=== PATIENT | female | born 1940 | race Caucasian/White ===

== ENCOUNTER 2018-11-11 15:23 | Inpatient (IN) ==
[2018-11-11] MEDS ORDERED: MethylPREDNISolone Sod Succinate Inj 125 MG/2 ML Vial IV.PUSH ONE (16:11)
[2018-11-11] MEDS ORDERED: Sod Chloride 0.9% Inj 1,000 ML IV.SIG SCH (16:15)
[2018-11-11 16:39] LABS: Baso % (Auto) 0.9 % (0.0-2.0); Eos % (Auto) 0.5 % (0.0-4.0); Hematocrit 44.4 % (35.0-46.0); Hemoglobin 13.9 gm/dL (11.6-15.3); Lymph # (Auto) 2.2 th/mm3 (1.0-4.8); Mean Corpuscular HGB Conc 31.4 % (32.0-36.0); Mean Corpuscular Hemoglobin 27.7 pg (27.0-34.0); Mean Corpuscular Volume 88.2 fL (80.0-100.0); Mean Platelet Volume 8.8 fL (7.0-11.0); Mono # (Auto) 0.6 th/mm3 (0.0-0.9); Neut # (Auto) 2.6 th/mm3 (1.8-7.7); Neut % (Auto) 47.6 % (16.0-70.0); Platelet Count 207 th/mm3 (150-450); Red Blood Count 5.04 mil/mm3 (4.00-5.30); Red Cell Distribution Width 13.7 % (11.6-17.2); White Blood Count 5.4 th/mm3 (4.0-11.0)
--- NOTE | 2018-11-11 16:39 | ED ---
HPI General Chief complaint: Weakness Stated complaint: Coughing/Weakness/Fever/Congestion Time Seen by Provider: 11/11/18 15:58 Source: family Mode of arrival: ambulatory Limitations: language barrier History of Present Illness HPI Narrative: This is a Grecian who only speaks Kyrgyz who presents with her granddaughter who speaks Eritrean with a chief complaint of progressive weakness over the course of the last 6 days. The granddaughter states that it all started with a cough and fever 6 days ago. Then, approximately 3 days ago, the patient started developing confusion and lethargy. Those symptoms have become progressively worse. The granddaughter reports that she has treated the patient 's cough with some nebulizer treatments. The nebulizer solution was actually prescribed to a family member and not the patient. Nonetheless, the nebs did help the cough and chest congestion. 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 However, she does not need any chronic treatment for respiratory issues. She does not use oxygen at home. She does not normally use nebulizer treatments at home. She also has a history of hypertension, coronary artery disease status post 2 stents and sciatica which limits her ambulation. MD Complaint: Reports generalized weakness Onset (ago): day(s) (6) Duration: constant and progressively worsening Location: Reports generalized Relieving factors: other (nebs improve breathing) Exacerbating factors: none Context: Reports recent illness Associated symptoms: Reports confusion, fever/chills, nausea/vomiting, myalgias and shortness of breath Related Data Home Medications Medication Instructions Recorded Confirmed carvedilol 12.5 mg PO DAILY 11/11/18 11/11/18 furosemide 20 mg PO BID 11/11/18 11/11/18 isosorbide mononitrate 30 mg PO DAILY 11/11/18 11/11/18 lisinopril 20 mg PO DAILY 11/11/18 11/11/18 Allergies Allergy/AdvReac Type Severity Reaction Status Date / Time No Known Allergies Allergy Verified 11/11/18 15:29 Review of Systems ROS: all other systems reviewed are negative [facility] Medical History Medical History Hx of heart valve stenosis (Acute) Hx of hysterectomy (Acute) Hx of lung disease (Acute) Surgical History Surgical History History of surgery on arm (Acute) Social History Social History Substance History: No History of Abuse Second Hand Smoke Exposure: No Smoking Status: Never smoker How Often Do You Have a Drink Containing Alcohol: Never Recent Travel in [place] within the Last 8 Weeks: No Recent Out of Country Travel within the Last 8 Weeks: No Immunization History Tetanus Immunization: Unsure Exam Const General: cooperative, healthy appearing, comfortable, no acute distress and well developed Orientation: alert and awake [facility] Head: normal to inspection, normocephalic and atraumatic Eyes Alignment and Position: alignment normal and position abnormal Conjunctivae: conjunctivae normal Sclera: sclerae normal EOM: EOM intact bilaterally Neck Neck: normal visual inspection and full ROM Chest Chest: normal inspection of the chest Resp Effort & Inspection: normal respiratory effort and other Auscultation: wheezes Cardio Rate: regular rate Rhythm: regular rhythm GI Inspection: normal to inspection Palpation: soft Back/Spine/Pelvis Cervical Spine: cervical ROM normal Thoracic/Lumbar Spine: thoraco-lumbar ROM normal Skin General: no rashes or lesions noted, turgor normal, dry skin and ecchymosis ( Right upper arm) Neuro General: alert, awake, oriented x3, moves all extremities and CN's II-XI intact bilaterally Extrem General: normal to inspection and full ROM Psych Appearance: grossly normal and well kempt Mental Status: mental status grossly normal Course Initial Documented Vital Signs Temperature 98.1 F 11/11/18 15:25 Pulse Rate 69 11/11/18 15:25 Respiratory Rate 18 11/11/18 15:25 Blood Pressure 186/90 H 11/11/18 15:25 Pulse Oximetry 93 L 11/11/18 15:25 Last Documented Vital Signs Temperature 98.1 F 11/11/18 15:25 Pulse Rate 83 11/11/18 18:09 Respiratory Rate 20 11/11/18 18:09 Blood Pressure 141/80 H 11/11/18 17:34 Pulse Oximetry 95 11/11/18 18:24 Medical Decision Making [facility] Narrative Medical decision making narrative: This is a patient with an underlying diagnosis of 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 Under normal circumstances, she does not take any medications for her breathing. On exam, the patient has some wheezing. She sounds very tight. Her sats are 91 % on room air. A septic workup has been initiated. She will be treated with DuoNeb's x3 and Solu-Medrol. 5:15 PM Labs and x-ray do not look bad. She does have a POSSIBLE infiltrate in the left base. I will treat her empirically with IV Rocephin and Zithromax. She has had duo nebs and Solu-Medrol. I will reassess her breathing to determine disposition. 5:25 PM Aeration is improved. However, she still has diffuse expiratory wheezing. I have ordered an additional set of stacked nebs. She is still on oxygen at 2 L and her sats are 95%. 6:15 PM She has now had a second round of stacked DuoNeb's. She is still very "wheezy. " She is still on 2 L of oxygen and her sats are only 93-95% on 2 L. She does not have an oxygen requirement at home. She will need to be admitted to the hospital for aggressive pulmonary treatment. Medical Screen Exam Complete: Yes Emergency Medical Condition: Yes Differential Diagnosis Differential Diagnosis: Differential diagnosis includes but is not limited to viral respiratory illness, bronchitis, pneumonia, allergies, CHF, asthma/COPD. Lab Data Lab results reviewed: Yes I reviewed the patient's lab results. Result diagrams: 11/11/18 16:20 11/11/18 16:20 Lab Results 11/11/18 11/11/18 11/11/18 Range/Units 16:20 16:20 16:20 CBC w Diff Auto diff final WBC 5.4 (4.0-11.0) th/mm3 RBC 5.04 (4.00-5.30) mil/mm3 Hgb 13.9 (11.6-15.3) gm/dL Hct 44.4 (35.0-46.0) % MCV 88.2 (80.0-100.0) fL MCH 27.7 (27.0-34.0) pg MCHC 31.4 L (32.0-36.0) % RDW 13.7 (11.6-17.2) % Plt Count 207 (150-450) th/mm3 MPV 8.8 (7.0-11.0) fL Neut % (Auto) 47.6 (16.0-70.0) % Lymph % (Auto) 40.0 (9.0-44.0) % [place] % (Auto) 11.0 H (0.0-8.0) % Eos % (Auto) 0.5 (0.0-4.0) % Baso % (Auto) 0.9 (0.0-2.0) % Neut # (Auto) 2.6 (1.8-7.7) th/mm3 Lymph # (Auto) 2.2 (1.0-4.8) th/mm3 [place] # (Auto) 0.6 (0.0-0.9) th/mm3 Eos # (Auto) 0.0 (0.0-0.4) th/mm3 Baso # (Auto) 0.0 (0.0-0.2) th/mm3 WBC Differential . Differential Comment . Sodium 142 (136-145) meq/L Potassium 3.5 (3.5-5.1) meq/L Chloride 107 (98-107) meq/L Carbon Dioxide 29.0 (21.0-32.0) meq/L Anion Gap 6 (5-15) meq/L BUN 19 H (7-18) mg/dL Creatinine 0.91 (0.50-1.00) mg/dL Estimated GFR 60 L (>89) mL/min Random Glucose 143 H (74-106) mg/dL Lactic Acid 1.9 (0.4-2.0) mmol/L Calcium 8.2 L (8.5-10.1) mg/dL Magnesium 2.3 (1.5-2.5) mg/dL Total Bilirubin 0.3 (0.2-1.0) mg/dL AST 31 (15-37) U/L ALT 29 (10-53) U/L Alkaline Phosphatase 69 (45-117) U/L Troponin I Less than 0.02 L (0.02-0.05) ng/mL B-Natriuretic Peptide (0-100) pg/mL Total Protein 7.6 (6.4-8.2) g/dL Albumin 3.3 L (3.4-5.0) g/dL 11/11/18 Range/Units 16:20 CBC w Diff WBC (4.0-11.0) th/mm3 RBC (4.00-5.30) mil/mm3 Hgb (11.6-15.3) gm/dL Hct (35.0-46.0) % MCV (80.0-100.0) fL MCH (27.0-34.0) pg MCHC (32.0-36.0) % RDW (11.6-17.2) % Plt Count (150-450) th/mm3 MPV (7.0-11.0) fL Neut % (Auto) (16.0-70.0) % Lymph % (Auto) (9.0-44.0) % [place] % (Auto) (0.0-8.0) % Eos % (Auto) (0.0-4.0) % Baso % (Auto) (0.0-2.0) % Neut # (Auto) (1.8-7.7) th/mm3 Lymph # (Auto) (1.0-4.8) th/mm3 [place] # (Auto) (0.0-0.9) th/mm3 Eos # (Auto) (0.0-0.4) th/mm3 Baso # (Auto) (0.0-0.2) th/mm3 WBC Differential Differential Comment Sodium (136-145) meq/L Potassium (3.5-5.1) meq/L Chloride (98-107) meq/L Carbon Dioxide (21.0-32.0) meq/L Anion Gap (5-15) meq/L BUN (7-18) mg/dL Creatinine (0.50-1.00) mg/dL Estimated GFR (>89) mL/min Random Glucose (74-106) mg/dL Lactic Acid (0.4-2.0) mmol/L Calcium (8.5-10.1) mg/dL Magnesium (1.5-2.5) mg/dL Total Bilirubin (0.2-1.0) mg/dL AST (15-37) U/L ALT (10-53) U/L Alkaline Phosphatase (45-117) U/L Troponin I (0.02-0.05) ng/mL B-Natriuretic Peptide 293 H (0-100) pg/mL Total Protein (6.4-8.2) g/dL Albumin (3.4-5.0) g/dL Imaging Data Attestation: I personally reviewed and interpreted this imaging study as follows : My impression: Possible left lower lobe infiltrate Radiologist's impression: Chest X-Ray 11/11/18 16:11 CONCLUSION: Suspected mild atelectasis or consolidation at the lateral left base. ECG Data EKG Prior to Arrival: No Attestation: I personally reviewed and interpreted this ECG as follows: (EKG shows a normal sinus rhythm with a rate of 71. No STT wave changes.) Discharge Plan Discharge Disposition Patient Disposition: ED Admit(ED Internal Use Only) Discharge Order Discharge Orders: ED Use Only Admit Order (Routine); Ordered 11/11/18 Ordered By: Sanjana Gil Discharge Details Diagnosis: Acute respiratory distress, Acute bronchospasm, Pneumonia Physicians Team ED Provider: Sanjana Gil Primary Care Provider: Daniel Ashby Rxs /Orders / Referrals /Forms Prescriptions: No Action carvedilol 12.5 mg PO DAILY RF: 0 furosemide 20 mg PO BID RF: 0 isosorbide mononitrate 30 mg PO DAILY RF: 0 lisinopril 20 mg PO DAILY RF: 0 Status ED Status: With Doctor
--- NOTE | 2018-11-11 16:43 | XR ---
EXAM DATE: 11/11/2018 4:37 PM EST AGE/SEX: 77 years / Female INDICATIONS: Cough. CLINICAL DATA: This is the patient's initial encounter. Patient reports that signs and symptoms have been present for 1 day and indicates a pain score of Nonresponsive. MEDICAL/SURGICAL HISTORY: Non-responsive. Non-responsive. COMPARISON: No prior exams available for comparison. FINDINGS: The heart size is within normal limits. There appear to be calcifications or stent seen over the LAD region. There are some mild linear density seen at the lateral left base. The lungs are otherwise mily ssly clear. No effusion is seen. CONCLUSION: Suspected mild atelectasis or consolidation at the lateral left base. Electronically signed by: Jeremiah Romero MD Board Certified Radiologist 11/11/2018 4:42 PM EST
[2018-11-11 16:44] LABS: Chloride 107 meq/L (98-107); Potassium 3.5 meq/L (3.5-5.1); Sodium 142 meq/L (136-145)
[2018-11-11 16:49] LABS: Albumin 3.3 g/dL (3.4-5.0); Anion Gap 6 meq/L (5-15); Calcium 8.2 mg/dL (8.5-10.1); Glucose,Random 143 mg/dL (74-106); Magnesium 2.3 mg/dL (1.5-2.5)
[2018-11-11 16:50] LABS: Blood Urea Nitrogen 19 mg/dL (7-18)
[2018-11-11 16:52] LABS: Alanine Aminotransferase 29 U/L (10-53); Aspartate Aminotransferase 31 U/L (15-37)
[2018-11-11 16:53] LABS: Glomerular Filtration Rate 60 mL/min (>89)
[2018-11-11 16:54] LABS: Total Protein 7.6 g/dL (6.4-8.2)
[2018-11-11 16:55] LABS: Alkaline Phosphatase 69 U/L (45-117)
[2018-11-11] MEDS ORDERED: Azithromycin Inj 500 MG in Sodium Chlor 0.9% Inj 250 ML IV.SIG ONE (17:15)
[2018-11-11] MEDS ORDERED: Bisacodyl 10 MG Supp RECTAL PRN (18:35)
[2018-11-11] MEDS: MethylPREDNISolone Sod Succinate Inj 40 MG/ML Vial IV.PUSH SCH (19:11)
[2018-11-11] MEDS: guaiFENesin 600 MG ER Tablet PO SCH (22:27)
[2018-11-12] MEDS: MethylPREDNISolone Sod Succinate Inj 40 MG/ML Vial IV.PUSH SCH ×4 (00:30→18:03)
[2018-11-12 06:44] LABS: Baso % (Auto) 0.2 % (0.0-2.0); Eos % (Auto) 0.1 % (0.0-4.0); Hematocrit 41.4 % (35.0-46.0); Hemoglobin 13.8 gm/dL (11.6-15.3); Lymph % (Auto) 11.8 % (9.0-44.0); Mean Corpuscular HGB Conc 33.3 % (32.0-36.0); Mean Corpuscular Hemoglobin 28.9 pg (27.0-34.0); Mean Corpuscular Volume 86.7 fL (80.0-100.0); Mean Platelet Volume 8.4 fL (7.0-11.0); Mono # (Auto) 0.2 th/mm3 (0.0-0.9); Mono % (Auto) 2.3 % (0.0-8.0); Neut # (Auto) 7.2 th/mm3 (1.8-7.7); Neut % (Auto) 85.6 % (16.0-70.0); Platelet Count 193 th/mm3 (150-450); Red Blood Count 4.77 mil/mm3 (4.00-5.30); Red Cell Distribution Width 13.5 % (11.6-17.2); White Blood Count 8.4 th/mm3 (4.0-11.0)
[2018-11-12 07:03] LABS: Potassium 3.6 meq/L (3.5-5.1)
[2018-11-12 07:08] LABS: Calcium 8.5 mg/dL (8.5-10.1)
--- NOTE | 2018-11-12 08:31 | ECG ---
Date Performed: 11/11/2018 Time Performed: 16:24:19 PTAGE: 77 years EKG: Sinus rhythm NORMAL ECG NO PREVIOUS TRACING DOCTOR: Bree Hsu Interpretating Date/Time 11/12/2018 08:26:53
[2018-11-12] MEDS: Isosorbide Mononitrate 30 MG ER 24HR Tablet (Imdur) PO SCH (09:33)
[2018-11-12] MEDS: guaiFENesin 600 MG ER Tablet PO SCH ×2 (09:33→21:22)
[2018-11-12] MEDS: Carvedilol 6.25 MG Tablet PO SCH (09:33)
[2018-11-12] MEDS: Lisinopril 20 MG Tablet PO SCH (09:33)
--- NOTE | 2018-11-12 10:14 | P.HPIM ---
History of Present Illness Primary Care Physician: Daniel Ashby DO Chief Complaint: weakness, cough and fever History of Present Illness: 77-year-old female with past medical history of lung disease 2/2 dry cleaning chemicals, hypertension, coronary artery disease status post 2 stents and sciatica which limits her ambulation who presented to the ER with complaint of progressive weakness over the course of the last 6 days. The granddaughter states that it all started with a cough and fever 6 days ago. Then, approximately 3 days ago, the patient started developing confusion and lethargy. Those symptoms have become progressively worse. The granddaughter reports that she has treated the patient's cough with some nebulizer treatments. The nebulizer solution was actually prescribed to a family member and not the patient. Nonetheless, the nebs did help the cough and chest congestion. 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 However, she does not need any chronic treatment for respiratory issues. She does not use oxygen at home. She does not normally use nebulizer treatments at home. She also has a history of hypertension, coronary artery disease status post 2 stents and sciatica which limits her ambulation. Review of Systems Review of Systems: all other systems reviewed are negative [facility] Medical History Medical History Hx of heart valve stenosis (Acute) Hx of lung disease (Acute) Surgical History Surgical History H/O: hysterectomy (Acute) History of surgery on arm (Acute) Hx of hysterectomy (Resolved) Social History Social History Substance History: No History of Abuse Second Hand Smoke Exposure: No Smoking Status: Never smoker How Often Do You Have a Drink Containing Alcohol: Never Recent Travel in [place] within the Last 8 Weeks: No Recent Out of Country Travel within the Last 8 Weeks: No Immunization History Tetanus Immunization: Unsure Medications and Allergies Allergies Allergy/AdvReac Type Severity Reaction Status Date / Time No Known Allergies Allergy Verified 11/11/18 15:29 Home Medications Medication Instructions Recorded Confirmed Type carvedilol 12.5 mg PO DAILY 11/11/18 11/11/18 History furosemide 20 mg PO BID 11/11/18 11/11/18 History isosorbide mononitrate 30 mg PO DAILY 11/11/18 11/11/18 History lisinopril 20 mg PO DAILY 11/11/18 11/11/18 History aspirin 325 mg PO DAILY 11/12/18 11/12/18 History atorvastatin 20 mg PO DAILY 11/12/18 11/12/18 History nitroglycerin 0.4 mg SUBLINGUAL Q5-15M PRN 11/12/18 11/12/18 History omega [id number] oil [Fish Oil] 1 cap PO DAILY 11/12/18 11/12/18 History potassium chloride 10 meq PO DAILY 11/12/18 11/12/18 History Active Medications: Active Medications Acetaminophen (Tylenol) 650 mg PO Q4H PRN PRN Reason: Temp > 100.4 Al Hydroxide/Mg Hydroxide (Milk Of Magnesia Liq) 30 ml PO Q12H PRN PRN Reason: Mild Constipation Albuterol (Duoneb Neb ([facility])) 1 ampul NEB Q6HR WHILE AWAKE NEB [facility] Last Admin: 11/12/18 07:48 Dose: 1 ampul Albuterol (Duoneb Neb (Prn)) 1 ampul NEB Q2HR NEB PRN PRN Reason: SHORTNESS OF BREATH/WHEEZING Bisacodyl (Dulcolax Supp) 10 mg RECTAL DAILY PRN PRN Reason: SEVERE CONSITIPATION Carvedilol (Coreg) 12.5 mg PO DAILY [facility] Last Admin: 11/12/18 09:33 Dose: 12.5 mg Guaifenesin (Mucinex Er) 600 mg PO BID [facility] Last Admin: 11/12/18 09:33 Dose: 600 mg Isosorbide Mononitrate (Imdur) 30 mg PO DAILY [facility] Last Admin: 11/12/18 09:33 Dose: 30 mg Lactulose (Lactulose Liq) 30 ml PO DAILY PRN PRN Reason: SEVERE CONSITIPATION Lisinopril (Prinivil) 20 mg PO DAILY [facility] Last Admin: 11/12/18 09:33 Dose: 20 mg Methylprednisolone Sodium Succinate (Solumedrol Inj) 40 mg IV.PUSH Q6H [facility] Last Admin: 11/12/18 06:51 Dose: 40 mg Ondansetron HCl (Zofran Inj) 4 mg IV.PUSH Q6H PRN PRN Reason: NAUSEA OR VOMITING Sennosides (Senokot) 17.2 mg PO Q12H PRN PRN Reason: Moderate Constipation Sodium Chloride (Ns Flush) 2 ml IV.FLUSH PRN PRN PRN Reason: FLUSH AFTER USING IV ACCESS Sodium Chloride (Ns Flush) 2 ml IV.FLUSH BID [facility] Last Admin: 11/12/18 09:34 Dose: 2 ml Physical Exam Vital signs: Last Vital Signs Temp 97.7 F 11/12/18 08:00 Pulse 83 11/12/18 08:00 Resp 20 11/12/18 08:00 BP 163/75 H 11/12/18 00:00 Pulse Ox 93 L 11/12/18 08:00 Intake & Output 11/10/18 11/11/18 11/12/18 11/13/18 06:59 06:59 06:59 06:59 Intake Total 1440 / 1440 Output Total 700 / 700 Balance 740 / 740 Weight 86.6 kg Narrative: GENERAL: Pleasant 77 yo female, well nourished, well developed, appears in nad. SKIN: Warm and dry. HEAD: Atraumatic. Normocephalic. EYES: Pupils equal and round. No scleral icterus. No injection or drainage. ENT: No nasal bleeding or discharge. Mucous membranes pink and moist. NECK: Trachea midline. No JVD. CARDIOVASCULAR: Regular rate and rhythm. RESPIRATORY: No accessory muscle use. Decreased breath sounds. Scattered wheezing. GASTROINTESTINAL: Abdomen soft, non-tender, nondistended. Hepatic and splenic margins not palpable. MUSCULOSKELETAL: Extremities without clubbing, cyanosis, or edema. No obvious deformities. NEUROLOGICAL: Awake and alert. No obvious cranial nerve deficits. Motor grossly within normal limits. Five out of 5 muscle strength in the arms and legs. Normal speech. PSYCHIATRIC: Appropriate mood and affect; insight and judgment normal. Results Labs CBC & Chem 7: 11/12/18 06:10 11/12/18 06:10 Imaging Impressions Chest X-Ray 11/11/18 16:11 CONCLUSION: Suspected mild atelectasis or consolidation at the lateral left base. Caprini VTE Risk Assessment Caprini VTE Risk Assessment: Moderate/High Risk (score >= 2) Caprini Risk Assessment Model: Point Value = 1 Point Value = 2 Point Value = 3 Point Value = 5 Age 41-60 Minor surgery BMI > 25 kg/m2 Swollen legs Varicose veins or History of unexplained or recurrent spontaneous Oral contraceptives or hormone replacement Sepsis (< 1 month) Serious lung disease, including pneumonia (< 1 month) Abnormal pulmonary function Acute myocardial infarction Congestive heart failure (< 1 month) History of inflammatory bowel disease Medical patient at bed rest Age 61-74 Arthroscopic surgery Major open surgery (> 45 min) Laparoscopic surgery (> 45 min) Malignancy Confined to bed (> 72 hours) Immobilizing plaster cast Central venous access Age >= 75 History of VTE Family history of VTE Factor V Leiden Prothrombin [id number] Lupus anticoagulant Anticardiolipin antibodies Elevated serum homocysteine Heparin-induced thrombocytopenia Other congenital or acquired thrombophilia Stroke (< 1 month) Elective arthroplasty Hip, pelvis, or leg fracture Acute spinal cord injury (< 1 month) Prophylaxis Regimen: Total Risk Factor Score Risk Level Prophylaxis Regimen 0-1 Low Early ambulation 2 Moderate Order ONE of the following: *Sequential Compression Device (SCD) *Heparin 5000 units SQ BID 3-4 Higher Order ONE of the following medications: *Heparin 5000 units SQ TID *Enoxaparin/Lovenox 40 mg SQ daily (WT < 150 kg, CrCl > 30 mL/min) *Enoxaparin/Lovenox 30 mg SQ daily (WT < 150 kg, CrCl > 10-29 mL/min) *Enoxaparin/Lovenox 30 mg SQ BID (WT < 150 kg, CrCl > 30 mL/min) AND/OR *Sequential Compression Device (SCD) 5 or more Highest Order ONE of the following medications: *Heparin 5000 units SQ TID (Preferred with Epidurals) *Enoxaparin/Lovenox 40 mg SQ daily (WT < 150 kg, CrCl > 30 mL/min) *Enoxaparin/Lovenox 30 mg SQ daily (WT < 150 kg, CrCl > 10-29 mL/min) *Enoxaparin/Lovenox 30 mg SQ BID (WT < 150 kg, CrCl > 30 mL/min) AND *Sequential Compression Device (SCD) Assessment and Plan Plan Possible left lower lobe lung infiltrate/bronchitis COPD with exacerbation Acute respiratory failure requiring 2 L by nasal cannula. Patient is not on home oxygen at home. Coronary artery disease with stent placed in the past. Hypertension. Restart home medications. Monitor blood pressure and adjust medications as needed. Blood cultures Duo nebs, Solu-Medrol IV, taper as tolerated Continue IV antibiotics Sumycin and ceftriaxone Oxygen supplement, keep oxygen saturation more than 92% DVT prophylaxis with heparin Discussed Condition With: Patient, nurse H&P: Quality VTE Deep Vein Thrombosis/Pulmonary Embolism Present on Admission: No
[2018-11-12] MEDS: Acetaminophen 325 MG Tablet PO PRN (23:07)
[2018-11-13] MEDS: MethylPREDNISolone Sod Succinate Inj 40 MG/ML Vial IV.PUSH SCH ×4 (01:13→21:47)
[2018-11-13] MEDS: Carvedilol 6.25 MG Tablet PO SCH (09:36)
[2018-11-13] MEDS: guaiFENesin 600 MG ER Tablet PO SCH ×2 (09:36→21:49)
[2018-11-13] MEDS: Lisinopril 20 MG Tablet PO SCH (09:37)
[2018-11-13] MEDS: Isosorbide Mononitrate 30 MG ER 24HR Tablet (Imdur) PO SCH ×2 (09:43→09:49)
--- NOTE | 2018-11-13 11:46 | P.PNIM ---
Subjective Interval history: In bed, appears in some distress. The patient is with sob and wheezing. With wheezing receiving nebs. No fever or chills. Feels tired. The patient is also anxious says her health is deteriorating and she is not a citizen and doesn't have insurance. Not much cough however feels congested and unable to bring anything up No abd pain or n/v/d/c. Physical Exam Vital signs: Last Vital Signs Temp 98.7 F 11/13/18 08:00 Pulse 81 11/13/18 08:00 Resp 20 11/13/18 08:00 BP 149/69 H 11/13/18 08:00 Pulse Ox 95 11/13/18 08:00 Intake & Output 11/11/18 11/12/18 11/13/18 11/14/18 06:59 06:59 06:59 06:59 Intake Total 1440 / 1440 840 / 840 240 / 240 Output Total 700 / 700 900 / 900 300 / 300 Balance 740 / 740 -60 / -60 -60 / -60 Weight 86.6 kg 88.9 kg Narrative: GENERAL: Pleasant 77 yo female, well nourished, well developed, appears in some distress due to sob. CARDIOVASCULAR: Regular rate and rhythm. RESPIRATORY: No accessory muscle use. Decreased breath sounds. Scattered wheezing. With sob. GASTROINTESTINAL: Abdomen soft, non-tender, nondistended. Hepatic and splenic margins not palpable. MUSCULOSKELETAL: Extremities without clubbing, cyanosis, or edema. No obvious deformities. NEUROLOGICAL: Awake and alert. No obvious cranial nerve deficits. Motor grossly within normal limits. Five out of 5 muscle strength in the arms and legs. Normal speech. PSYCHIATRIC: Appropriate mood and affect; insight and judgment normal. Results Labs CBC & Chem 7: 11/12/18 06:10 11/12/18 06:10 Labs: Microbiology 11/11/18 16:35 Blood - Peripheral Aerobic Blood Culture - Preliminary No growth in 2 days 11/11/18 16:35 Blood - Peripheral Anaerobic Blood Culture - Preliminary No growth in 2 days 11/11/18 16:20 Blood - Peripheral Aerobic Blood Culture - Preliminary No growth in 2 days 11/11/18 16:20 Blood - Peripheral Anaerobic Blood Culture - Preliminary No growth in 2 days Assessment and Plan Plan Possible left lower lobe lung infiltrate/bronchitis COPD with exacerbation Acute respiratory failure requiring 2 L by nasal cannula. Patient is not on home oxygen at home. Coronary artery disease with stent placed in the past. Hypertension. Restart home medications. Monitor blood pressure and adjust medications as needed. Blood cultures NTD Sputum cultures of obtainable Influ a/b is neg Duo nebs, Solu-Medrol IV, taper as tolerated Continue IV antibiotics Azithromycin and ceftriaxone Oxygen supplement, keep oxygen saturation more than 92% DVT prophylaxis with heparin discussed with the patient, family by phone, nurse Will need O2 walk test before discharge. However the patient is not having insurance and will need to stay in house until improves. Progress Note: Quality VTE Deep Vein Thrombosis/Pulmonary Embolism Present on Admission: No
[2018-11-13 19:18] LABS: ABG PCO2 42 mmHg (38-42); ABG PO2 85 mmHg (61-120)
--- NOTE | 2018-11-13 19:36 | XR ---
EXAM DATE: 11/13/2018 7:32 PM EST AGE/SEX: 77 years / Female INDICATIONS: Shortness of breath. CLINICAL DATA: This is the patient's subsequent encounter. Patient reports that signs and symptoms h ave been present for 3 days and indicates a pain score of Nonresponsive. MEDICAL/SURGICAL HISTORY: Non-responsive. Non-responsive. COMPARISON: [facility], CHEST 1V SINGLE AP, 11/11/2018. . FINDINGS: Cardiac silhouette is enlarged with indistinct central pulmonary vascularity. Ill-defined right infer ior perihilar opacity may reflect confluence of vascular shadows. Minimal airspace disease at the lef t lung base. Mild diffuse interstitial prominence. Remainder of the exam is unchanged. CONCLUSION: 1. Cardiomegaly with mild pulmonary vascular congestion. 2. Ill-defined right infrahilar parenchymal opacity may reflect confluence of shadows. However, dunia ot exclude medial right middle lobe airspace disease. 3. Minimal persistent airspace disease at the left lung base, likely atelectasis. Electronically signed by: Kirill García MD Board Certified Radiologist 11/13/2018 7:35 PM T
[2018-11-13] MEDS: Acetaminophen 325 MG Tablet PO PRN (19:54)
[2018-11-13] MEDS ORDERED: Vancomycin Inj 1,250 MG in Sodium Chlor 0.9% Inj 250 ML IV.SIG ONE (20:31)
[2018-11-13] MEDS ORDERED: Vancomycin Consult Pharmacy OTHER PRN (20:33)
--- NOTE | 2018-11-13 21:05 | CT ---
EXAM DATE: 11/13/2018 8:57 PM EST AGE/SEX: 77 years / Female INDICATIONS: Short of breath. General weakness. Cough. CLINICAL DATA: This is the patient's initial encounter. Patient reports that signs and symptoms have been present for 1 week and indicates a pain score of 2/10. MEDICAL/SURGICAL HISTORY: Cardiovascular disease. Hypertension. Chronic obstructive pulmonary dis ease. Hysterectomy. RADIATION DOSE: 21.72 CTDI (mGy) COMPARISON: [facility]PO, CHEST 1V SINGLE AP, 11/13/2018. . TECHNIQUE: Volumetric scanning was performed using a multi-row detector CT scanner during bolus infu delmy of 75 ml Omnipaque 350 (iohexol) nonionic water-soluble contrast as a single exam dose. The estrada a was post processed with a variety of visualization algorithms including full volume maximum intensi ty projection and sliding thin slab reformation. Using automated exposure control and adjustment of the mA and/or kV according to patient size, radiation dose was kept as low as reasonably achievable t o obtain optimal diagnostic quality images. DICOM format image data is available electronically for review and comparison. FINDINGS: Pulmonary Arteries: No filling defects are seen in the pulmonary arteries through the segmental vess els. The main pulmonary artery is normal in diameter. Lung: Mild airspace consolidation at the lung bases bilaterally. This is more prominent in the media l right lung base. There is opacification of subsegmental bronchi at the bases most notably on the le ft. Ill-defined nearly nodularr airspace disease in the superior segment of the right lower lobe mary uring up to 10 mm. Pleura: No effusion, significant pleural thickening or pneumothorax. Mediastinum: Heart is unremarkable without pericardial effusion. Severe coronary artery calcificatio ns. No significant mediastinal adenopathy. Osseous Structures: Advanced degenerative spondylosis of the thoracic spine. Other: Visulaized upper abdomen is unremarkable. CONCLUSION: 1. No CT evidence for pulmonary artery embolism. 2. Airspace consolidation at the lung bases bilaterally, more prominent in the medial right lung bas e. Associated opacification of subsegmental bronchi at the bases, most notably on the left. Overall f indings are most concerning for aspiration. Differential considerations include pneumonia. 3. Ill-defined nearly nodular 10 mm airspace disease in the superior segment of the right lower lobe . Suspect this is infectious/inflammatory in etiology. Recommend follow-up examination in 3-6 months following completion of appropriate course of therapy. 4. Severe coronary artery calcifications. Electronically signed by: Kirill García MD Board Certified Radiologist 11/13/2018 9:03 PM DAVINA Mallory
[2018-11-13] MEDS ORDERED: Vancomycin Inj 2,100 MG in Sodium Chlor 0.9% Inj 500 ML IV.SIG ONE (22:00)
[2018-11-13 22:44] LABS: Bilirubin,Urine Negative (Negative); Clarity,Urine Clear (Clear); Color,Urine Yellow (Yellw/Straw); Glucose,Urine (UA) Negative (Negative); Leukocyte Esterase,Urine Negative (Negative); Nitrite,Urine Negative (Negative); Specific Gravity,Urine 1.015 (1.002-1.035); Urobilinogen,Urine 0.2 mg/dL (Less than 2)
[2018-11-13 22:51] LABS: RBC,Urine 0-3 /hpf (0-3); Squamous Epithelial Cell,Urine 0-5 /hpf (0-5); WBC,Urine 0-5 /hpf (0-5)
[2018-11-14] MEDS: Piperacil/Tazo 4.5 GM Premix 4.5 GM/100 ML BAG IV.SIG SCH ×5 (00:56→21:56)
[2018-11-14] MEDS: MethylPREDNISolone Sod Succinate Inj 40 MG/ML Vial IV.PUSH SCH ×4 (05:28→22:51)
[2018-11-14] MEDS: guaiFENesin 600 MG ER Tablet PO SCH ×2 (10:02→21:45)
[2018-11-14] MEDS: Lisinopril 20 MG Tablet PO SCH (10:02)
[2018-11-14] MEDS: Isosorbide Mononitrate 30 MG ER 24HR Tablet (Imdur) PO SCH (10:02)
[2018-11-14] MEDS: Carvedilol 6.25 MG Tablet PO SCH (10:02)
--- NOTE | 2018-11-14 14:01 | MB ---
cc: Maricruz ePrea MD DATE: 11/14/2018 REASON FOR CONSULTATION: Respiratory distress and pneumonia. HISTORY OF PRESENT ILLNESS: This is a 77-year-old lady who has a history of chronic lung disease, as well as history of hypertension, coronary artery disease, and chronic back pain. She was admitted with progressive weakness, congestion, cough, wheezing and fever. The patient apparently had a respiratory infection, which got worse and she developed chest tightness and subsequently also became confused and lethargic and was brought to the emergency room. Upon admission, the patient had a CAT scan of the chest which showed evidence of bibasilar pulmonary infiltrates consistent with either aspiration pneumonia or atelectasis and also a lung nodule. The patient has had no hemoptysis, brings up very little mucus, running some fevers, and now on IV antibiotic therapy, as well as IV Solu-Medrol, and on oxygen at 2-3 liters. She has no chest pains. Denies nausea, vomiting or aspiration that she can remember. 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 She has also had a history of aortic valve stenosis. PAST SURGICAL HISTORY: Includes hysterectomy. HABITS AND SOCIAL HISTORY: The patient is a nonsmoker. No significant alcohol use. FAMILY HISTORY: Noncontributory. ALLERGIES: NONE LISTED. MEDICATIONS: List included: 1. Coreg 12.5 mg daily. 2. Lasix 20 mg b.i.d. 3. Lisinopril 20 mg a day. 4. Aspirin 1 daily. 5. Atorvastatin 20 mg a day. 6. Potassium 10 mEq daily. 7. Isordil 30 mg a day. REVIEW OF SYSTEMS: The patient is unable to provide many details. She is short of breath. She has wheezing. She has a cough. She has some epigastric distress with reflux, and has had some leg swelling, and also complains of anxiety. PHYSICAL EXAMINATION: GENERAL: This averagely built, elderly, white female is alert, anxious, mildly dyspneic at rest. VITAL SIGNS: Blood pressure 150/70, pulse is 96, respirations 20, temperature 97.5. HEENT: Head is normocephalic. Pupils are reactive. Tongue is moist. Throat is injected. Nasal mucosa edematous. NECK: Supple. No bruits. Mild venous distention. Trachea midline. CHEST: Distant breath sounds with fine crackles at the lung bases, more on the right side. Wheezes were scattered. HEART: Sounds are irregular S1 and S2 with no murmur. ABDOMEN: Soft and protuberant without masses. No organomegaly or tenderness. Bowel sounds active. EXTREMITIES: Minimal edema with diminished peripheral pulses. Reflexes are 1+ with no gross motor deficits. Cranial nerves grossly intact. SKIN: No lesions observed. IMPRESSION: 1. Bibasilar pneumonia with probable aspiration. 2. Chronic bronchitis with reactive airways disease. 3. Acute respiratory failure with hypoxemia. 4. Coronary artery disease. 5. Hypertension. PLAN: The patient will be maintained on IV Zosyn 4.5 grams every 8 hours and Flagyl 500 mg IV every 8 hours, as well as vancomycin 1 g a day. The patient will be sent for a followup chest x-ray. Sputum sent for Gram stain and culture. Bedside pulmonary function study will be done. Also, await urine antigen for pneumococcus and Legionella. The patient will need a followup CT scan for the lung nodule to be done in approximately 4 to 6 months. The patient will be maintained on DuoNeb solution with a nebulizer q.i.d. and Symbicort added, 160/4.5 mcg 2 puffs twice daily. Thank you, Dr. Monet, for this consultation. MD GAMAL Sherman/lida , 01:24 PM , 01:37 PM
--- NOTE | 2018-11-14 14:37 | P.PNIM ---
Subjective Interval history: Patient is seen lying in bed. Offered custom designer, she declined. Indicates that she is still short of breath but not in distress. No chest pain. No nausea vomiting or diarrhea. Physical Exam Vital signs: Last Vital Signs Temp 98.4 F 11/14/18 12:00 Pulse 73 11/14/18 12:00 Resp 17 11/14/18 12:00 BP 100/57 L 11/14/18 12:00 Pulse Ox 95 11/14/18 12:00 Intake & Output 11/12/18 11/13/18 11/14/18 11/15/18 06:59 06:59 06:59 06:59 Intake Total 1440 / 1440 840 / 840 1661 / 1661 200 / 200 Output Total 700 / 700 900 / 900 2049 / 2049 Balance 740 / 740 -60 / -60 -389 / -389 200 / 200 Weight 86.6 kg 88.9 kg 88.7 kg Narrative: GENERAL: Well-nourished, well-developed adult female in no mild distress. SKIN: Warm and dry. HEAD: Atraumatic. Normocephalic. CARDIOVASCULAR: Regular rate and rhythm. RESPIRATORY: No accessory muscle use. Wheeze. Diminished bases. GASTROINTESTINAL: Abdomen soft, non-tender, non-distended. Positive bowel sounds. MUSCULOSKELETAL: Extremities without clubbing, cyanosis, or edema. No obvious deformities. NEUROLOGICAL: Awake and alert. No obvious cranial nerve deficits. Motor grossly within normal limits. Normal speech. PSYCHIATRIC: Appropriate mood and affect; insight and judgment good. Results Labs CBC & Chem 7: 11/12/18 06:10 11/12/18 06:10 Labs: Microbiology 11/12/18 09:30 Sputum - Expectorated Sputum Gram Stain - Final 11/12/18 09:30 Sputum - Expectorated Sputum Sputum Culture - Final Light growth normal respiratory yan 11/13/18 21:15 Blood - Peripheral Aerobic Blood Culture - Preliminary No growth in 1 day 11/13/18 21:15 Blood - Peripheral Anaerobic Blood Culture - Preliminary No growth in 1 day 11/13/18 21:20 Blood - Peripheral Aerobic Blood Culture - Preliminary No growth in 1 day 11/13/18 21:20 Blood - Peripheral Anaerobic Blood Culture - Preliminary No growth in 1 day 11/11/18 16:35 Blood - Peripheral Aerobic Blood Culture - Preliminary No growth in 3 days 11/11/18 16:35 Blood - Peripheral Anaerobic Blood Culture - Preliminary No growth in 3 days 11/11/18 16:20 Blood - Peripheral Aerobic Blood Culture - Preliminary No growth in 3 days 11/11/18 16:20 Blood - Peripheral Anaerobic Blood Culture - Preliminary No growth in 3 days Imaging Imaging: Impressions Chest CTA 11/13/18 00:00 CONCLUSION: 1. No CT evidence for pulmonary artery embolism. 2. Airspace consolidation at the lung bases bilaterally, more prominent in the medial right lung base. Associated opacification of subsegmental bronchi at the bases, most notably on the left. Overall findings are most concerning for aspiration. Differential considerations include pneumonia. 3. Ill-defined nearly nodular 10 mm airspace disease in the superior segment of the right lower lobe. Suspect this is infectious/inflammatory in etiology. Recommend follow-up examination in 3-6 months following completion of appropriate course of therapy. 4. Severe coronary artery calcifications. Chest X-Ray 11/13/18 00:00 CONCLUSION: 1. Cardiomegaly with mild pulmonary vascular congestion. 2. Ill-defined right infrahilar parenchymal opacity may reflect confluence of shadows. However, cannot exclude medial right middle lobe airspace disease. 3. Minimal persistent airspace disease at the left lung base, likely atelectasis. 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 She was admitted from the ED with weakness , cough, congestion and fever. Bibasilar pneumonia with aspiration COPD with exacerbation Acute respiratory failure with hypoxemia -Pulmonology consulted; appreciate assistance -requiring 2 L by nasal cannula. Patient is not on home oxygen at home. -IV antibiotics azithromycin and ceftriaxone initially; change to Flagyl, Vanco and Zosyn by pulmonology -Bedside PFTs ordered -DuoNeb's, Solu-Medrol, IS, Symbicort -Sputum culture ordered; Legionella and pneumococcus pending; flu negative; blood cultures NGTD -Lung nodule found on CTA; pulmonology recommending repeat CT scan in 4-6 months to evaluate Chronic conditions: Coronary artery disease with stent placed in the past. Hypertension. -Restart home medications. DVT prophylaxis with heparin Will need O2 walk test before discharge. Progress Note: Quality VTE Deep Vein Thrombosis/Pulmonary Embolism Present on Admission: No
[2018-11-14] MEDS ORDERED: Digoxin Inj 500 MCG/2 ML Ampul IV.PUSH ONE (18:50)
[2018-11-14] MEDS ORDERED: Metoprolol Inj 5 MG/5 ML Vial IV.PUSH ONE ×2 (19:09→19:34)
[2018-11-14] MEDS ORDERED: Sodium Chlor 0.9% Inj 500 ML IV.SIG SCH (19:32)
[2018-11-14] MEDS: Budesonide-Formoterol 160/4.5 MCG 6 GM Inhaler INH SCH (21:55)
--- NOTE | 2018-11-14 22:04 | ECG ---
Date Performed: 11/14/2018 Time Performed: 18:53:43 PTAGE: 77 years EKG: ATRIAL FLUTTER/TACHYCARDIA WITH RAPID VENTRICULAR RESPONSE LEFT VENTRICULAR HYPERTROPHY AND ST-T CHANGE ABNORMAL ECG PREVIOUS TRACING : 11/11/2018 16.24 Compared to previous tracing, Afib with RVR is new DOCTOR: Chris Holloway Interpretating Date/Time 11/14/2018 22:03:28
[2018-11-14] MEDS: Vancomycin Inj 2,000 MG in Sodium Chlor 0.9% Inj 500 ML IV.SIG SCH (22:51)
[2018-11-14] MEDS ORDERED: dilTIAZem Inj 125 MG in Sodium Chlor 0.9% Inj 100 ML IV.CONT PRN (23:17)
[2018-11-15] MEDS ORDERED: Digoxin Inj 500 MCG/2 ML Ampul IV.PUSH ONE (00:01)
--- NOTE | 2018-11-15 00:53 | XR ---
EXAM DATE: 11/15/2018 12:39 AM EST AGE/SEX: 77 years / Female INDICATIONS: Congestion. CLINICAL DATA: This is the patient's subsequent encounter. Patient reports that signs and symptoms h ave been present for 4 - 6 days and indicates a pain score of Nonresponsive. MEDICAL/SURGICAL HISTORY: Non-responsive. Non-responsive. COMPARISON: [facility]PO, CHEST 1V SINGLE AP, 11/13/2018. . FINDINGS: Left greater than right basilar parenchymal consolidation again noted and both sides are slightly wor se in the interim. There may be a small left pleural effusion. No large pleural effusion demonstrated . No pneumothorax. Heart size stable, within normal limits. Degenerative changes with mild scoliosis again seen of the spine. CONCLUSION: Bibasilar consolidation slightly worse. Electronically signed by: Jeremiah Camejo MD Board Certified Radiologist 11/15/2018 12:51 AM EST
[2018-11-15] MEDS ORDERED: Chlorhexidine Gluconate 2% 1 Pack (2 Cloths) TOPICAL PRN (04:00)
[2018-11-15] MEDS: Chlorhexidine Gluconate 2% 1 Pack (2 Cloths) TOPICAL SCH (04:37)
[2018-11-15] MEDS: Piperacil/Tazo 4.5 GM Premix 4.5 GM/100 ML BAG IV.SIG SCH ×4 (04:37→21:32)
[2018-11-15] MEDS: MethylPREDNISolone Sod Succinate Inj 40 MG/ML Vial IV.PUSH SCH ×3 (05:45→23:37)
[2018-11-15 06:47] LABS: Baso % (Auto) 0.4 % (0.0-2.0); Eos % (Auto) 0.1 % (0.0-4.0); Hematocrit 38.5 % (35.0-46.0); Hemoglobin 12.8 gm/dL (11.6-15.3); Lymph # (Auto) 0.7 th/mm3 (1.0-4.8); Mean Corpuscular HGB Conc 33.2 % (32.0-36.0); Mean Corpuscular Hemoglobin 29.3 pg (27.0-34.0); Mean Corpuscular Volume 88.2 fL (80.0-100.0); Mean Platelet Volume 8.3 fL (7.0-11.0); Mono # (Auto) 0.5 th/mm3 (0.0-0.9); Mono % (Auto) 6.3 % (0.0-8.0); Neut # (Auto) 7.3 th/mm3 (1.8-7.7); Neut % (Auto) 85.2 % (16.0-70.0); Platelet Count 236 th/mm3 (150-450); Red Blood Count 4.36 mil/mm3 (4.00-5.30); Red Cell Distribution Width 13.2 % (11.6-17.2); White Blood Count 8.5 th/mm3 (4.0-11.0)
[2018-11-15 06:55] LABS: Potassium 3.5 meq/L (3.5-5.1)
[2018-11-15 06:58] LABS: Calcium 8.3 mg/dL (8.5-10.1)
[2018-11-15 06:59] LABS: Carbon Dioxide 32.3 meq/L (21.0-32.0)
[2018-11-15] MEDS: guaiFENesin 600 MG ER Tablet PO SCH ×2 (08:07→21:04)
[2018-11-15] MEDS: Carvedilol 6.25 MG Tablet PO SCH (08:07)
[2018-11-15] MEDS: Digoxin 125 MCG Tablet PO SCH (08:08)
[2018-11-15] MEDS: Isosorbide Mononitrate 30 MG ER 24HR Tablet (Imdur) PO SCH (08:08)
[2018-11-15] MEDS: Budesonide-Formoterol 160/4.5 MCG 6 GM Inhaler INH SCH ×2 (08:08→20:55)
[2018-11-15] MEDS: Lisinopril 20 MG Tablet PO SCH (08:08)
--- NOTE | 2018-11-15 13:21 | P.PNIM ---
Subjective Interval history: Follow up PNA. Patient seen and examined, [employer] interpreting service used for translating. Patient still complains of shortness of breath and wheezing. Cough with white phlegm. Supposedly patient went into a fib rvr overnight and was placed on Cardizem gtt and is now off gtt. Currently controlled in NSR. PT continuing to work with patient. Educated on how to use IS and encouraged use. 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 Physical Exam Vital signs: Vital Signs 11/14/18 15:30 11/14/18 16:00 11/14/18 18:45 Temperature 97.6 F Pulse Rate 66 71 128 H Respiratory Rate 24 17 24 Blood Pressure 115/63 Pulse Oximetry 96 11/14/18 20:00 11/14/18 21:00 11/14/18 21:41 Temperature 98.5 F Pulse Rate 144 H 145 H Respiratory Rate 32 H 20 Blood Pressure 122/90 Pulse Oximetry 97 93 L 11/15/18 00:00 11/15/18 01:00 11/15/18 02:00 Temperature 97.5 F L Pulse Rate 144 H 118 H 98 H Respiratory Rate 26 H 22 14 Blood Pressure 100/53 L 93/77 L 107/77 Pulse Oximetry 95 96 11/15/18 03:00 11/15/18 03:08 11/15/18 04:00 Temperature 98.6 F Pulse Rate 104 H 104 H 113 H Respiratory Rate 24 23 20 Blood Pressure 125/70 124/95 H Pulse Oximetry 94 L 97 11/15/18 05:00 11/15/18 06:00 11/15/18 07:00 Temperature Pulse Rate 92 H 96 H 96 H Respiratory Rate 24 22 19 Blood Pressure 115/79 131/76 Pulse Oximetry 96 96 95 11/15/18 07:01 11/15/18 08:00 11/15/18 08:01 Temperature Pulse Rate 100 H 100 H 98 H Respiratory Rate 20 20 23 Blood Pressure 143/89 H 138/68 Pulse Oximetry 95 96 97 11/15/18 09:00 11/15/18 09:01 11/15/18 10:00 Temperature Pulse Rate 100 H 94 H 100 H Respiratory Rate 21 21 22 Blood Pressure 155/91 H Pulse Oximetry 96 96 96 11/15/18 10:01 11/15/18 11:00 11/15/18 11:04 Temperature Pulse Rate 110 H 92 H 96 H Respiratory Rate 18 26 H 28 H Blood Pressure 149/89 H 161/109 H Pulse Oximetry 96 94 L 96 11/15/18 11:08 11/15/18 12:00 11/15/18 12:01 Temperature Pulse Rate 100 H 94 H 88 Respiratory Rate 25 H 22 23 Blood Pressure 175/92 H 120/75 Pulse Oximetry 97 92 L 94 L Intake & Output 11/14/18 11/15/18 11/15/18 18:59 06:59 18:59 Intake Total 1120 / 1120 1380 / 1380 200 / 200 Output Total 1500 / 1500 500 / 500 Balance -380 / -380 880 / 880 200 / 200 Weight 86.5 kg Intake: IV 400 / 400 1320 / 1320 200 / 200 Zosyn 4.5 GM Premix 4.5 gm In 200 / 200 200 / 200 100 / 100 100 ml @ 200 mls/hr IV.SIG Q6H YOLIS Rx#:[id number] NS Inj 500 ML @ 1000 mls/hr IV. 500 / 500 SIG BOLUS YOLIS Rx#:[id number] Vancomycin Inj 2,000 MG In NS 520 / 520 Inj 500 ML @ 250 mls/hr IV.SIG Q24H YOLIS Rx#:[id number] Flagyl 500 MG Inj 100 ML @ 100 200 / 200 100 / 100 100 / 100 mls/hr IV.SIG Q8H YOLIS Rx#: [id number] Oral 720 / 720 60 / 60 Output: Urine 1500 / 1500 500 / 500 Other: # Urine Diapers 2 # Bowel Movements 0 0 Weight On Admission 86.5 kg Narrative: GENERAL: Well-nourished, well-developed adult female in no mild distress. SKIN: Warm and dry. HEAD: Atraumatic. Normocephalic. CARDIOVASCULAR: Regular rate and rhythm. RESPIRATORY: No accessory muscle use. Diffuse wheezing and rhonchi. Diminished bases. GASTROINTESTINAL: Abdomen soft, non-tender, non-distended. Positive bowel sounds. MUSCULOSKELETAL: Extremities without clubbing, cyanosis, or edema. No obvious deformities. NEUROLOGICAL: Awake and alert. No obvious cranial nerve deficits. Motor grossly within normal limits. Normal speech. PSYCHIATRIC: Appropriate mood and affect; insight and judgment good. Results - Labs CBC & Chem 7: 11/15/18 05:45 11/15/18 05:45 Laboratory Results - last 24 hr 11/14/18 11/14/18 11/15/18 18:48 19:52 05:45 CBC w Diff Auto diff final WBC 8.5 RBC 4.36 Hgb 12.8 Hct 38.5 MCV 88.2 MCH 29.3 MCHC 33.2 RDW 13.2 Plt Count 236 MPV 8.3 Neut % (Auto) 85.2 H Lymph % (Auto) 8.0 L [place] % (Auto) 6.3 Eos % (Auto) 0.1 Baso % (Auto) 0.4 Neut # (Auto) 7.3 Lymph # (Auto) 0.7 L [place] # (Auto) 0.5 Eos # (Auto) 0.0 Baso # (Auto) 0.0 WBC Differential . Differential Comment . Sodium Potassium Chloride Carbon Dioxide Anion Gap BUN Creatinine Estimated GFR Random Glucose Calcium Troponin I Less than 0.02 L Nasal Screen MRSA (PCR) Not detected 11/15/18 05:45 CBC w Diff WBC RBC Hgb Hct MCV MCH MCHC RDW Plt Count MPV Neut % (Auto) Lymph % (Auto) [place] % (Auto) Eos % (Auto) Baso % (Auto) Neut # (Auto) Lymph # (Auto) [place] # (Auto) Eos # (Auto) Baso # (Auto) WBC Differential Differential Comment Sodium 141 Potassium 3.5 Chloride 102 Carbon Dioxide 32.3 H Anion Gap 7 BUN 30 H Creatinine 0.86 Estimated GFR 64 L Random Glucose 161 H Calcium 8.3 L Troponin I Nasal Screen MRSA (PCR) Microbiology 11/13/18 21:15 Blood - Peripheral Aerobic Blood Culture - Preliminary No growth in 2 days 11/13/18 21:15 Blood - Peripheral Anaerobic Blood Culture - Preliminary No growth in 2 days 11/13/18 21:20 Blood - Peripheral Aerobic Blood Culture - Preliminary No growth in 2 days 11/13/18 21:20 Blood - Peripheral Anaerobic Blood Culture - Preliminary No growth in 2 days 11/11/18 16:35 Blood - Peripheral Aerobic Blood Culture - Preliminary No growth in 4 days 11/11/18 16:35 Blood - Peripheral Anaerobic Blood Culture - Preliminary No growth in 4 days 11/11/18 16:20 Blood - Peripheral Aerobic Blood Culture - Preliminary No growth in 4 days 11/11/18 16:20 Blood - Peripheral Anaerobic Blood Culture - Preliminary No growth in 4 days 11/12/18 09:30 Sputum - Expectorated Sputum Gram Stain - Final 11/12/18 09:30 Sputum - Expectorated Sputum Sputum Culture - Final Light growth normal respiratory yan - Imaging Impressions Chest X-Ray 11/15/18 00:00 CONCLUSION: Bibasilar consolidation slightly worse. 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 She was admitted from the ED with weakness , cough, congestion and fever. Bibasilar pneumonia with aspiration, worsening today COPD with exacerbation Acute respiratory failure with hypoxemia -Pulmonology consulted; appreciate assistance -requiring 2 L by nasal cannula. Patient is not on home oxygen at home. -IV antibiotics azithromycin and ceftriaxone initially; change to Flagyl, Vanco and Zosyn by pulmonology. -Bedside PFTs ordered -DuoNeb's, Solu-Medrol, IS, Symbicort, continue. -Sputum culture ordered; Legionella and pneumococcus negative; flu negative; blood cultures NGTD -Lung nodule found on CTA; pulmonology recommending repeat CT scan in 4-6 months to evaluate -Worsening CXR This am. Encourage increase in movement and use of IS. CHF, unspecified type, in exacerbation -BNP elevated. Check ECHO. -Limit fluids. Paroxysmal atrial fibrillation, new onset -Patient went into a fib RVR overnight, likely secondary to acute illness. -Was placed on a Cardizem gtt and turned off at midnight. Was given digoxin. -Continue on home medications including Imdur and Coreg. -Patient does not follow with seed corn production manager, last seen a seed corn production manager was in [place] 6 years ago. -Cardiology consulted, input and recommendations pending. -Check mag and phos today. Replace potassium. Follow labs in am. Coronary artery disease with stent placed in the past Hypertension -Restart home medications. -Await cardiology input. DVT prophylaxis with heparin
[2018-11-15 16:23] LABS: Magnesium 2.5 mg/dL (1.5-2.5)
--- NOTE | 2018-11-15 16:43 | MB ---
cc: Liu Bush MD DATE: 11/15/2018 REASON FOR CONSULTATION: Atrial fibrillation. HISTORY OF PRESENT ILLNESS: History is difficult to elicit due to language barrier. 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 Workup has suggested bibasilar pneumonia for which she has been treated. She continues to have mild to moderate dyspnea at rest. She seems to deny chest pain, dizziness, palpitations, pedal edema. PAST MEDICAL HISTORY: 1. Coronary artery disease, apparently status post coronary stenting in the past. 2. Hypertension. 3. Possible pulmonary fibrosis and chronic lung disease. 4. Hyperlipidemia. PAST SURGICAL HISTORY: 1. Arm surgery. 2. Hysterectomy. CARDIAC MEDICATIONS AT HOME: 1. Imdur 30 mg daily. 2. Carvedilol 12.5 mg daily. 3. Lisinopril 20 mg daily. 4. Aspirin 325 mg daily. 5. Furosemide 20 mg b.i.d. 6. Atorvastatin 20 mg daily. ALLERGIES: NO KNOWN DRUG ALLERGIES. FAMILY HISTORY: Noncontributory. SOCIAL HISTORY: The patient denies any history of alcohol or tobacco abuse. REVIEW OF SYSTEMS: As in the history of present illness, otherwise negative or noncontributory, or difficult to elicit. PHYSICAL EXAMINATION: VITAL SIGNS: Her blood pressure is 136/87 with a pulse of 88, respirations 16. GENERAL: She is a well-developed, well-nourished white female in no acute distress. NECK: Jugular venous pressure is normal. Carotid pulses are 2+ bilaterally and without bruits. CHEST: Diffuse scattered wheezes and rhonchi. CARDIAC: She has an irregularly irregular rhythm without S3 or murmur. ABDOMEN: She has a soft, obese, nontender abdomen. Bowel sounds are present. There is no definite hepatosplenomegaly. EXTREMITIES: Reveals no clubbing, cyanosis or edema. LABORATORY DATA: EKG shows atrial fibrillation, nonspecific ST abnormalities. Chest x-ray showed bibasilar consolidation. Normal CBC. Potassium 3.5, BUN 30, creatinine 0.86. Troponin less than 0.02. IMPRESSION: Atrial fibrillation in a 77-year-old white female with a history of coronary artery disease, hypertension, hyperlipidemia, chronic lung disease, and possible pulmonary fibrosis. At this time, she appears to be in atrial fibrillation with controlled heart rates. There is no definite evidence for congestive heart failure or acute coronary syndrome. With respect to her thromboembolic risk, it is moderately elevated with her advanced age and hypertension. RECOMMENDATIONS: 1. Would recommend b.i.d. dosing for her carvedilol. 2. Agree with digoxin. 3. Add oral Cardizem. 4. Overall, I would recommend rate control and anticoagulation therapy. If she has insurance that covers medications, would place her on Eliquis or Xarelto. Otherwise, would recommend warfarin to achieve an INR of 2.0-2.5. 5. Check a 2-D echocardiogram to assess the left ventricular function. 6. Will follow up as needed. MD MAYA Zayas/edwige , 04:19 PM , 04:28 PM PATRICIA
--- NOTE | 2018-11-15 18:06 | P.PN ---
Subjective Interval history: In ICU due to Atr Fib and RVR. Now on cardizem. still on IV solumedrol and IV Zosyn. CXR shows basal infiltrates. Physical Exam Vital signs: Vital Signs 11/14/18 18:45 11/14/18 20:00 11/14/18 21:00 Temperature 98.5 F Pulse Rate 128 H 144 H 145 H Respiratory Rate 24 32 H 20 Blood Pressure 122/90 Pulse Oximetry 97 11/14/18 21:41 11/15/18 00:00 11/15/18 01:00 Temperature 97.5 F L Pulse Rate 144 H 118 H Respiratory Rate 26 H 22 Blood Pressure 100/53 L 93/77 L Pulse Oximetry 93 L 95 96 11/15/18 02:00 11/15/18 03:00 11/15/18 03:08 Temperature Pulse Rate 98 H 104 H 104 H Respiratory Rate 14 24 23 Blood Pressure 107/77 125/70 Pulse Oximetry 94 L 11/15/18 04:00 11/15/18 05:00 11/15/18 06:00 Temperature 98.6 F Pulse Rate 113 H 92 H 96 H Respiratory Rate 20 24 22 Blood Pressure 124/95 H 115/79 131/76 Pulse Oximetry 97 96 96 11/15/18 07:00 11/15/18 07:01 11/15/18 08:00 Temperature Pulse Rate 96 H 100 H 100 H Respiratory Rate 19 20 20 Blood Pressure 143/89 H Pulse Oximetry 95 95 96 11/15/18 08:01 11/15/18 09:00 11/15/18 09:01 Temperature Pulse Rate 98 H 100 H 94 H Respiratory Rate 23 21 21 Blood Pressure 138/68 155/91 H Pulse Oximetry 97 96 96 11/15/18 10:00 11/15/18 10:01 11/15/18 11:00 Temperature Pulse Rate 97 H 110 H 92 H Respiratory Rate 20 18 26 H Blood Pressure 149/89 H Pulse Oximetry 96 96 94 L 11/15/18 11:04 11/15/18 11:08 11/15/18 12:00 Temperature Pulse Rate 96 H 100 H 94 H Respiratory Rate 28 H 25 H 22 Blood Pressure 161/109 H 175/92 H Pulse Oximetry 96 97 92 L 11/15/18 12:01 11/15/18 13:00 11/15/18 13:01 Temperature 98.2 F Pulse Rate 88 90 94 H Respiratory Rate 23 24 20 Blood Pressure 120/75 146/90 H Pulse Oximetry 94 L 95 94 L 11/15/18 13:26 11/15/18 14:00 11/15/18 14:01 Temperature Pulse Rate 89 86 Respiratory Rate 21 15 Blood Pressure 136/78 Pulse Oximetry 95 97 96 11/15/18 15:00 11/15/18 15:01 11/15/18 15:35 Temperature Pulse Rate 80 88 83 Respiratory Rate 25 H 16 26 H Blood Pressure 136/87 Pulse Oximetry 94 L 94 L 11/15/18 16:00 11/15/18 16:01 11/15/18 17:00 Temperature Pulse Rate 82 82 86 Respiratory Rate 22 25 H 22 Blood Pressure 120/79 Pulse Oximetry 94 L 95 95 11/15/18 17:01 Temperature Pulse Rate 84 Respiratory Rate 24 Blood Pressure 130/79 Pulse Oximetry 95 Intake & Output 11/14/18 11/15/18 11/15/18 18:59 06:59 18:59 Intake Total 1120 / 1120 1380 / 1380 200 / 200 Output Total 1500 / 1500 500 / 500 Balance -380 / -380 880 / 880 200 / 200 Weight 86.5 kg Intake: IV 400 / 400 1320 / 1320 200 / 200 Zosyn 4.5 GM Premix 4.5 gm In 200 / 200 200 / 200 100 / 100 100 ml @ 200 mls/hr IV.SIG Q6H YOLIS Rx#:[id number] NS Inj 500 ML @ 1000 mls/hr IV. 500 / 500 SIG BOLUS YOLIS Rx#:[id number] Vancomycin Inj 2,000 MG In NS 520 / 520 Inj 500 ML @ 250 mls/hr IV.SIG Q24H YOLIS Rx#:[id number] Flagyl 500 MG Inj 100 ML @ 100 200 / 200 100 / 100 100 / 100 mls/hr IV.SIG Q8H YOLIS Rx#: [id number] Oral 720 / 720 60 / 60 Output: Urine 1500 / 1500 500 / 500 Other: # Urine Diapers 2 # Bowel Movements 0 0 Weight On Admission 86.5 kg Narrative: GENERAL: Well-nourished, well-developed elderly female in mild distress. SKIN: Warm and dry. HEAD: Atraumatic. Normocephalic. CARDIOVASCULAR: Regular rate and rhythm. RESPIRATORY: Basal crackles and wheeze upper chest. Diminished bases. GASTROINTESTINAL: Abdomen soft, non-tender, non-distended. Positive bowel sounds. MUSCULOSKELETAL: Extremities without clubbing, cyanosis, or edema. No obvious deformities. NEUROLOGICAL: Awake and alert. Motor grossly within normal limits. Normal speech. PSYCHIATRIC: Appropriate mood and affect. Results - Labs CBC & Chem 7: 11/15/18 05:45 11/15/18 05:45 Laboratory Results - last 24 hr 11/14/18 11/14/18 11/15/18 18:48 19:52 05:45 CBC w Diff Auto diff final WBC 8.5 RBC 4.36 Hgb 12.8 Hct 38.5 MCV 88.2 MCH 29.3 MCHC 33.2 RDW 13.2 Plt Count 236 MPV 8.3 Neut % (Auto) 85.2 H Lymph % (Auto) 8.0 L [place] % (Auto) 6.3 Eos % (Auto) 0.1 Baso % (Auto) 0.4 Neut # (Auto) 7.3 Lymph # (Auto) 0.7 L [place] # (Auto) 0.5 Eos # (Auto) 0.0 Baso # (Auto) 0.0 WBC Differential . Differential Comment . Sodium Potassium Chloride Carbon Dioxide Anion Gap BUN Creatinine Estimated GFR Random Glucose Calcium Phosphorus Magnesium Troponin I Less than 0.02 L Nasal Screen MRSA (PCR) Not detected 11/15/18 11/15/18 05:45 05:45 CBC w Diff WBC RBC Hgb Hct MCV MCH MCHC RDW Plt Count MPV Neut % (Auto) Lymph % (Auto) [place] % (Auto) Eos % (Auto) Baso % (Auto) Neut # (Auto) Lymph # (Auto) [place] # (Auto) Eos # (Auto) Baso # (Auto) WBC Differential Differential Comment Sodium 141 Potassium 3.5 Chloride 102 Carbon Dioxide 32.3 H Anion Gap 7 BUN 30 H Creatinine 0.86 Estimated GFR 64 L Random Glucose 161 H Calcium 8.3 L Phosphorus 3.0 Magnesium 2.5 Troponin I Nasal Screen MRSA (PCR) Microbiology 11/13/18 21:15 Blood - Peripheral Aerobic Blood Culture - Preliminary No growth in 2 days 11/13/18 21:15 Blood - Peripheral Anaerobic Blood Culture - Preliminary No growth in 2 days 11/13/18 21:20 Blood - Peripheral Aerobic Blood Culture - Preliminary No growth in 2 days 11/13/18 21:20 Blood - Peripheral Anaerobic Blood Culture - Preliminary No growth in 2 days 11/11/18 16:35 Blood - Peripheral Aerobic Blood Culture - Preliminary No growth in 4 days 11/11/18 16:35 Blood - Peripheral Anaerobic Blood Culture - Preliminary No growth in 4 days 11/11/18 16:20 Blood - Peripheral Aerobic Blood Culture - Preliminary No growth in 4 days 11/11/18 16:20 Blood - Peripheral Anaerobic Blood Culture - Preliminary No growth in 4 days - Imaging Impressions Chest X-Ray 11/15/18 00:00 CONCLUSION: Bibasilar consolidation slightly worse. Assessment and Plan - Assessment (1) Atrial fibrillation Code(s): I48.91 - Unspecified atrial fibrillation Status: Acute (2) CHF (congestive heart failure) Code(s): I50.9 - Heart failure, unspecified Status: Acute (3) Interstitial lung disease Code(s): J84.9 - Interstitial pulmonary disease, unspecified Status: Acute (4) Atelectasis of both lungs Code(s): J98.11 - Atelectasis Status: Acute (5) Acute respiratory distress Code(s): R06.03 - Acute respiratory distress Status: Acute (6) Acute bronchospasm Code(s): J98.01 - Acute bronchospasm Status: Acute (7) Pneumonia Code(s): J18.9 - Pneumonia, unspecified organism Status: Acute - Plan 1. Will continue Antibiotics Zosyn/vanco 2. Cont Duoneb nebs qid. 3. Wean off cardizem 4. O2 3 L. 5. Solumedrol 40 mg IV Q8H 6. CXR ,BMP ,CBC in am (7) Pneumonia Qualifiers: Pneumonia type: due to unspecified organism Laterality: left Lung location: lower lobe of lung Qualified Code(s): J18.1 - Lobar pneumonia, unspecified organism
[2018-11-15] MEDS: Heparin - SQ 10,000 UNITS/ML Vial SQ SCH (20:54)
[2018-11-15] MEDS: Carvedilol 12.5 MG Tablet PO SCH (21:01)
[2018-11-15] MEDS ORDERED: Pharmacy Ordered Lab Info OTHER ONE (21:45)
[2018-11-15] MEDS: Vancomycin Inj 2,000 MG in Sodium Chlor 0.9% Inj 500 ML IV.SIG SCH (22:19)
[2018-11-16] MEDS: Piperacil/Tazo 4.5 GM Premix 4.5 GM/100 ML BAG IV.SIG SCH ×4 (03:25→21:25)
[2018-11-16] MEDS: Chlorhexidine Gluconate 2% 1 Pack (2 Cloths) TOPICAL SCH (03:27)
[2018-11-16 05:16] LABS: Baso % (Auto) 0.2 % (0.0-2.0); Eos % (Auto) 0.2 % (0.0-4.0); Hematocrit 40.7 % (35.0-46.0); Hemoglobin 12.9 gm/dL (11.6-15.3); Lymph # (Auto) 0.6 th/mm3 (1.0-4.8); Lymph % (Auto) 7.3 % (9.0-44.0); Mean Corpuscular HGB Conc 31.7 % (32.0-36.0); Mean Corpuscular Hemoglobin 28.2 pg (27.0-34.0); Mean Corpuscular Volume 88.7 fL (80.0-100.0); Mean Platelet Volume 8.7 fL (7.0-11.0); Mono # (Auto) 0.4 th/mm3 (0.0-0.9); Mono % (Auto) 5.2 % (0.0-8.0); Neut # (Auto) 7.5 th/mm3 (1.8-7.7); Neut % (Auto) 87.1 % (16.0-70.0); Platelet Count 279 th/mm3 (150-450); Red Blood Count 4.58 mil/mm3 (4.00-5.30); Red Cell Distribution Width 13.9 % (11.6-17.2); White Blood Count 8.5 th/mm3 (4.0-11.0)
[2018-11-16 05:27] LABS: Potassium 4.1 meq/L (3.5-5.1)
[2018-11-16 05:30] LABS: Carbon Dioxide 30.3 meq/L (21.0-32.0); Magnesium 2.5 mg/dL (1.5-2.5)
[2018-11-16] MEDS: MethylPREDNISolone Sod Succinate Inj 40 MG/ML Vial IV.PUSH SCH ×2 (06:21→14:47)
[2018-11-16] MEDS: Isosorbide Mononitrate 30 MG ER 24HR Tablet (Imdur) PO SCH (08:58)
[2018-11-16] MEDS: Digoxin 125 MCG Tablet PO SCH (08:58)
[2018-11-16] MEDS: Heparin - SQ 10,000 UNITS/ML Vial SQ SCH (08:59)
[2018-11-16] MEDS: dilTIAZem CD 180 MG Capsule PO SCH (08:59)
[2018-11-16] MEDS: Lisinopril 20 MG Tablet PO SCH (08:59)
[2018-11-16] MEDS: Carvedilol 12.5 MG Tablet PO SCH ×2 (08:59→21:25)
[2018-11-16] MEDS: Budesonide-Formoterol 160/4.5 MCG 6 GM Inhaler INH SCH ×2 (09:00→21:26)
[2018-11-16] MEDS: guaiFENesin 600 MG ER Tablet PO SCH ×2 (12:27→21:24)
--- NOTE | 2018-11-16 12:36 | ECHRPT ---
Indication: Heart Failure CONCLUSIONS Normal left ventricular size. Mild concentric left ventricular hypertrophy. The left ventricular systolic function is normal with an estimated ejection fraction in the range of 55-60%. Mitral annular calcification is present. Aortic valve sclerosis is present. There is trace tricuspid valve regurgitation. The estimated pulmonary arterial pressure is 47 mmHg. Trivial pulmonary valve regurgitation. There is a small pericardial effusion present. BP: 126 / 82 HR: 105 Rhythm: MEASUREMENTS (Male / Female) Normal Values Technical Quality:Fair 2D ECHO LV Diastolic Diameter PLAX 4.2 cm 4.2 - 5.9 / 3.9 - 5.3 cm LV Systolic Diameter PLAX 2.4 cm IVS Diastolic Thickness 1.1 cm 0.6 - 1.0 / 0.6 - 0.9 cm LVPW Diastolic Thickness 1.1 cm 0.6 - 1.0 / 0.6 - 0.9 cm LV Relative Wall Thickness 0.5 RV Internal Dim ED PLAX 2.4 cm LVOT Diameter 2.0 cm Aortic Root Diameter 2.5 cm LA Systolic Diameter LX 3.7 cm 3.0 - 4.0 / 2.7 - 3.8 cm DOPPLER AV Peak Velocity 168.0 cm/s AV Peak Gradient 11.3 mmHg LVOT Peak Velocity 116.0 cm/s LVOT Peak Gradient 5.4 mmHg AV Area Cont Eq pk 2.2 cm Mitral E Point Velocity 124.0 cm/s LV E' Lateral Velocity 9.6 cm/s Mitral E to LV E' Lateral Ratio 13.0 LV E' Septal Velocity 4.6 cm/s Mitral E to LV E' Septal Ratio 27.1 TR Peak Velocity 303.0 cm/s TR Peak Gradient 36.7 mmHg Right Atrial Pressure 10.0 mmHg Pulmonary Artery Systolic Pressu 46.7 mmHg Right Ventricular Systolic Press 46.7 mmHg PV Peak Velocity 114.0 cm/s PV Peak Gradient 5.2 mmHg FINDINGS LEFT VENTRICLE Normal left ventricular size. Mild concentric left ventricular hypertrophy. The left ventricular systolic function is normal with an estimated ejection fraction in the range of 55-60%. RIGHT VENTRICLE Normal right ventricular size and systolic function. LEFT ATRIUM The left atrial size is normal. RIGHT ATRIUM The right atrial size is normal. ATRIAL SEPTUM Normal atrial septal thickness without atrial level shunting by limited color doppler interrogation. AORTA The aortic root and proximal ascending aorta are normal in size on limited imaging. MITRAL VALVE Mitral annular calcification is present. AORTIC VALVE Trileaflet aortic valve. Aortic valve sclerosis is present. TRICUSPID VALVE There is trace tricuspid valve regurgitation. The estimated pulmonary arterial pressure is 47 mmHg. PULMONARY VALVE Trivial pulmonary valve regurgitation. VESSELS The inferior vena cava is normal in size. PERICARDIUM There is a small pericardial effusion present. Singh De La Cruz MD, FACC (Electronically Signed) Final Date:16 November 2018 12:35
[2018-11-16] MEDS ORDERED: Warfarin Consult Pharmacy OTHER PRN (12:50)
--- NOTE | 2018-11-16 12:54 | P.PNIM ---
Subjective Interval history: Follow-up pneumonia, COPD exacerbation paroxysmal A. fib. Patient seen and examined, [employer] interpreting used for communication. Patient states that she feels continued short of breath, is coughing up green phlegm. Eating well without any nausea or vomiting. Denies any chest pain. Cardiology and to see patient. Heart rate is more controlled. Physical Exam Vital signs: Vital Signs 11/15/18 13:00 11/15/18 13:01 11/15/18 13:26 Temperature 98.2 F Pulse Rate 90 94 H Respiratory Rate 24 20 Blood Pressure 146/90 H Pulse Oximetry 95 94 L 95 11/15/18 14:00 11/15/18 14:01 11/15/18 15:00 Temperature Pulse Rate 89 86 80 Respiratory Rate 21 15 25 H Blood Pressure 136/78 Pulse Oximetry 97 96 94 L 11/15/18 15:01 11/15/18 15:35 11/15/18 16:00 Temperature Pulse Rate 88 83 82 Respiratory Rate 16 26 H 22 Blood Pressure 136/87 Pulse Oximetry 94 L 94 L 11/15/18 16:01 11/15/18 17:00 11/15/18 17:01 Temperature Pulse Rate 82 86 84 Respiratory Rate 25 H 22 24 Blood Pressure 120/79 130/79 Pulse Oximetry 95 95 95 11/15/18 18:00 11/15/18 18:01 11/15/18 18:18 Temperature 97.9 F Pulse Rate 88 94 H 102 H Respiratory Rate 24 21 23 Blood Pressure 135/102 H 141/80 H Pulse Oximetry 96 96 96 11/15/18 19:01 11/15/18 20:00 11/15/18 20:01 Temperature 98.5 F Pulse Rate 118 H 107 H 108 H Respiratory Rate 28 H 26 H Blood Pressure 135/77 106/69 Pulse Oximetry 95 93 L 93 L 11/15/18 20:49 11/15/18 21:01 11/15/18 21:57 Temperature Pulse Rate 106 H 100 H 102 H Respiratory Rate 28 H 26 H 22 Blood Pressure 151/76 H 120/86 Pulse Oximetry 94 L 94 L 95 11/15/18 22:00 11/15/18 22:01 11/15/18 23:00 Temperature Pulse Rate 92 H 104 H 100 H Respiratory Rate 25 H 26 H Blood Pressure 147/78 H 122/68 Pulse Oximetry 97 95 11/16/18 00:00 11/16/18 01:00 11/16/18 02:00 Temperature 98.6 F Pulse Rate 96 H 102 H 106 H Respiratory Rate 25 H 23 26 H Blood Pressure 111/72 115/75 145/89 H Pulse Oximetry 95 95 96 11/16/18 03:01 11/16/18 03:36 11/16/18 04:00 Temperature Pulse Rate 100 H 106 H 80 Respiratory Rate 20 22 Blood Pressure 110/75 Pulse Oximetry 96 11/16/18 04:02 11/16/18 05:00 11/16/18 06:00 Temperature 98.6 F Pulse Rate 102 H 90 105 H Respiratory Rate 25 H 21 Blood Pressure 141/82 H 147/86 H Pulse Oximetry 95 94 L 11/16/18 06:02 11/16/18 08:20 11/16/18 10:11 Temperature Pulse Rate 80 108 H Respiratory Rate 21 20 Blood Pressure 140/95 H Pulse Oximetry 95 97 Intake & Output 11/15/18 11/16/18 11/16/18 18:59 06:59 18:59 Intake Total 950 / 950 700 / 700 Output Total 700 / 700 500 / 500 Balance 250 / 250 200 / 200 Weight 88.1 kg Intake: IV 300 / 300 400 / 400 Zosyn 4.5 GM Premix 4.5 gm In 200 / 200 200 / 200 100 ml @ 200 mls/hr IV.SIG Q6H YOLIS Rx#:[id number] Flagyl 500 MG Inj 100 ML @ 100 100 / 100 200 / 200 mls/hr IV.SIG Q8H YOLIS Rx#: [id number] Oral 650 / 650 300 / 300 Output: Urine 700 / 700 500 / 500 Other: # Bowel Movements 0 Narrative: GENERAL: Well-nourished, well-developed elderly female lying in bed comfortably no apparent distress. On supplemental O2. SKIN: Warm and dry. HEAD: Atraumatic. Normocephalic. CARDIOVASCULAR: Regular rate and rhythm. RESPIRATORY: Bilateral posterior lower lobe crackles with diffuse wheezing. GASTROINTESTINAL: Abdomen soft, non-tender, non-distended. Positive bowel sounds. MUSCULOSKELETAL: Extremities without clubbing, cyanosis, or edema. No obvious deformities. NEUROLOGICAL: Awake and alert. Motor grossly within normal limits. Normal speech. PSYCHIATRIC: Appropriate mood and affect. Results - Labs CBC & Chem 7: 11/16/18 04:35 11/16/18 04:35 Laboratory Results - last 24 hr 11/15/18 11/15/18 11/16/18 05:45 22:18 04:35 CBC w Diff Auto diff final WBC 8.5 RBC 4.58 Hgb 12.9 Hct 40.7 MCV 88.7 MCH 28.2 MCHC 31.7 L RDW 13.9 Plt Count 279 MPV 8.7 Neut % (Auto) 87.1 H Lymph % (Auto) 7.3 L [place] % (Auto) 5.2 Eos % (Auto) 0.2 Baso % (Auto) 0.2 Neut # (Auto) 7.5 Lymph # (Auto) 0.6 L [place] # (Auto) 0.4 Eos # (Auto) 0.0 Baso # (Auto) 0.0 WBC Differential . Differential Comment . Sodium Potassium Chloride Carbon Dioxide Anion Gap BUN Creatinine Estimated GFR Random Glucose Calcium Phosphorus 3.0 Magnesium 2.5 Vancomycin Trough 9.2 11/16/18 04:35 CBC w Diff WBC RBC Hgb Hct MCV MCH MCHC RDW Plt Count MPV Neut % (Auto) Lymph % (Auto) [place] % (Auto) Eos % (Auto) Baso % (Auto) Neut # (Auto) Lymph # (Auto) [place] # (Auto) Eos # (Auto) Baso # (Auto) WBC Differential Differential Comment Sodium 139 Potassium 4.1 Chloride 102 Carbon Dioxide 30.3 Anion Gap 7 BUN 31 H Creatinine 0.81 Estimated GFR 68 L Random Glucose 187 H Calcium 8.0 L Phosphorus Magnesium 2.5 Vancomycin Trough Microbiology 11/13/18 21:15 Blood - Peripheral Aerobic Blood Culture - Preliminary No growth in 3 days 11/13/18 21:15 Blood - Peripheral Anaerobic Blood Culture - Preliminary No growth in 3 days 11/13/18 21:20 Blood - Peripheral Aerobic Blood Culture - Preliminary No growth in 3 days 11/13/18 21:20 Blood - Peripheral Anaerobic Blood Culture - Preliminary No growth in 3 days 11/11/18 16:35 Blood - Peripheral Aerobic Blood Culture - Final No growth in 5 days 11/11/18 16:35 Blood - Peripheral Anaerobic Blood Culture - Final No growth in 5 days 11/11/18 16:20 Blood - Peripheral Aerobic Blood Culture - Final No growth in 5 days 11/11/18 16:20 Blood - Peripheral Anaerobic Blood Culture - Final No growth in 5 days Assessment and Plan - Assessment (1) Acute bronchospasm Code(s): J98.01 - Acute bronchospasm Status: Acute (2) Acute respiratory distress Code(s): R06.03 - Acute respiratory distress Status: Acute (3) Atrial fibrillation Code(s): I48.91 - Unspecified atrial fibrillation Status: Acute (4) CHF (congestive heart failure) Code(s): I50.9 - Heart failure, unspecified Status: Acute (5) Interstitial lung disease Code(s): J84.9 - Interstitial pulmonary disease, unspecified Status: Acute (6) Pneumonia Code(s): J18.9 - Pneumonia, unspecified organism Status: Acute - Plan Patient is a 77-year-old female with a past medical history of hypertension, coronary artery disease, chronic pain and 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 She was admitted from the ED with weakness , cough, congestion and fever. Bibasilar pneumonia with aspiration COPD with exacerbation Acute respiratory failure with hypoxemia -Pulmonology consulted; appreciate assistance -Requiring 2 L by nasal cannula. Patient is not on home oxygen at home. -IV antibiotics azithromycin and ceftriaxone initially; changed to Flagyl, Vanco and Zosyn by pulmonology. -Bedside PFTs ordered. -DuoNeb's, Solu-Medrol, IS, Symbicort, continue. -Sputum culture ordered, no growth; Legionella and pneumococcus negative; flu negative; blood cultures NGTD -Lung nodule found on CTA; pulmonology recommending repeat CT scan in 4-6 months to evaluate -Encourage increase in movement and use of IS. -PT evaluation ordered, [facility] recommended when ready for dc. Paroxysmal atrial fibrillation, new onset Elevated BNP on presentation -Patient went into a fib RVR, likely secondary to acute illness. -Was placed on a Cardizem gtt which has presently been turned off. Was started on digoxin. -Continue on home medications including Imdur and Coreg. -Patient does not follow with statistics intern, last seen a statistics intern was in [facility] 6 years ago. -Cardiology consulted, input and recommendations appreciated. Change dose of carvedilol to twice daily. Continue digoxin. Added oral Cardizem. -Anticoagulation recommendations for Coumadin, patient does not have insurance. INR goal 2-2.5. Pharmacy consulted to assist with dosing. Started on Lovenox bridge. -Echocardiogram done showing EF of 55-60%. Normal left ventricular size. Mild left ventricular hypertrophy. Aortic valve sclerosis. Trace tricuspid valve regurgitation, trivial pulmonary valve regurgitation. Pulmonary artery pressure 47. Coronary artery disease with cardiac stent Hypertension -Restart home medications. DVT prophylaxis: Coumadin. Discharge Planning: Awaiting clinical improvement. (6) Pneumonia Qualifiers: Pneumonia type: due to unspecified organism Laterality: left Lung location: lower lobe of lung Qualified Code(s): J18.1 - Lobar pneumonia, unspecified organism
[2018-11-16 15:47] LABS: Prothrombin Time 10.6 sec (9.8-11.6)
[2018-11-16] MEDS ORDERED: COUMA PO SCH (16:00)
--- NOTE | 2018-11-16 17:51 | P.PN ---
Subjective Interval history: feels better. On O2 2 L. No chest pains and HR better. Physical Exam Vital signs: Vital Signs 11/15/18 18:00 11/15/18 18:01 11/15/18 18:18 Temperature 97.9 F Pulse Rate 88 94 H 102 H Respiratory Rate 24 21 23 Blood Pressure 135/102 H 141/80 H Pulse Oximetry 96 96 96 11/15/18 19:01 11/15/18 20:00 11/15/18 20:01 Temperature 98.5 F Pulse Rate 118 H 107 H 108 H Respiratory Rate 28 H 26 H Blood Pressure 135/77 106/69 Pulse Oximetry 95 93 L 93 L 11/15/18 20:49 11/15/18 21:01 11/15/18 21:57 Temperature Pulse Rate 106 H 100 H 102 H Respiratory Rate 28 H 26 H 22 Blood Pressure 151/76 H 120/86 Pulse Oximetry 94 L 94 L 95 11/15/18 22:00 11/15/18 22:01 11/15/18 23:00 Temperature Pulse Rate 92 H 104 H 100 H Respiratory Rate 25 H 26 H Blood Pressure 147/78 H 122/68 Pulse Oximetry 97 95 11/16/18 00:00 11/16/18 01:00 11/16/18 02:00 Temperature 98.6 F Pulse Rate 96 H 102 H 106 H Respiratory Rate 25 H 23 26 H Blood Pressure 111/72 115/75 145/89 H Pulse Oximetry 95 95 96 11/16/18 03:01 11/16/18 03:36 11/16/18 04:00 Temperature Pulse Rate 100 H 106 H 80 Respiratory Rate 20 22 Blood Pressure 110/75 Pulse Oximetry 96 11/16/18 04:02 11/16/18 05:00 11/16/18 06:00 Temperature 98.6 F Pulse Rate 102 H 90 105 H Respiratory Rate 25 H 21 Blood Pressure 141/82 H 147/86 H Pulse Oximetry 95 94 L 11/16/18 06:02 11/16/18 08:20 11/16/18 10:11 Temperature Pulse Rate 80 108 H Respiratory Rate 21 20 Blood Pressure 140/95 H Pulse Oximetry 95 97 11/16/18 15:18 Temperature Pulse Rate 76 Respiratory Rate 22 Blood Pressure Pulse Oximetry Intake & Output 12/30/18 12/31/18 12/31/18 18:59 06:59 18:59 Intake Total 950 / 950 700 / 700 200 / 200 Output Total 700 / 700 500 / 500 Balance 250 / 250 200 / 200 200 / 200 Weight 88.1 kg Intake: IV 300 / 300 400 / 400 200 / 200 Zosyn 4.5 GM Premix 4.5 gm In 200 / 200 200 / 200 100 / 100 100 ml @ 200 mls/hr IV.SIG Q6H YOLIS Rx#:[id number] Flagyl 500 MG Inj 100 ML @ 100 100 / 100 200 / 200 100 / 100 mls/hr IV.SIG Q8H YOLIS Rx#: [id number] Oral 650 / 650 300 / 300 Output: Urine 700 / 700 500 / 500 Other: # Bowel Movements 0 Narrative: GENERAL: Well-nourished, well-developed elderly female in no apparent distress. On supplemental O2. SKIN: Warm and dry. HEAD: Atraumatic. Normocephalic. CARDIOVASCULAR:Irregular rate and rhythm. RESPIRATORY: Bilateral posterior lower lobe crackles with diffuse wheezing. GASTROINTESTINAL: Abdomen soft, non-tender, non-distended. Positive bowel sounds. MUSCULOSKELETAL: Extremities without clubbing, cyanosis, or edema. No obvious deformities. NEUROLOGICAL: Awake and alert. Motor grossly within normal limits. Normal speech. PSYCHIATRIC: Appropriate mood and affect. Results - Labs CBC & Chem 7: 11/16/18 04:35 11/16/18 04:35 Laboratory Results - last 24 hr 11/15/18 11/16/18 11/16/18 22:18 04:35 04:35 CBC w Diff Auto diff final WBC 8.5 RBC 4.58 Hgb 12.9 Hct 40.7 MCV 88.7 MCH 28.2 MCHC 31.7 L RDW 13.9 Plt Count 279 MPV 8.7 Neut % (Auto) 87.1 H Lymph % (Auto) 7.3 L [place] % (Auto) 5.2 Eos % (Auto) 0.2 Baso % (Auto) 0.2 Neut # (Auto) 7.5 Lymph # (Auto) 0.6 L [place] # (Auto) 0.4 Eos # (Auto) 0.0 Baso # (Auto) 0.0 WBC Differential . Differential Comment . PT INR Sodium 139 Potassium 4.1 Chloride 102 Carbon Dioxide 30.3 Anion Gap 7 BUN 31 H Creatinine 0.81 Estimated GFR 68 L Random Glucose 187 H Calcium 8.0 L Magnesium 2.5 Vancomycin Trough 9.2 11/16/18 15:25 CBC w Diff WBC RBC Hgb Hct MCV MCH MCHC RDW Plt Count MPV Neut % (Auto) Lymph % (Auto) [place] % (Auto) Eos % (Auto) Baso % (Auto) Neut # (Auto) Lymph # (Auto) [place] # (Auto) Eos # (Auto) Baso # (Auto) WBC Differential Differential Comment PT 10.6 INR 1.0 Sodium Potassium Chloride Carbon Dioxide Anion Gap BUN Creatinine Estimated GFR Random Glucose Calcium Magnesium Vancomycin Trough Microbiology 11/13/18 21:15 Blood - Peripheral Aerobic Blood Culture - Preliminary No growth in 3 days 11/13/18 21:15 Blood - Peripheral Anaerobic Blood Culture - Preliminary No growth in 3 days 11/13/18 21:20 Blood - Peripheral Aerobic Blood Culture - Preliminary No growth in 3 days 11/13/18 21:20 Blood - Peripheral Anaerobic Blood Culture - Preliminary No growth in 3 days 11/11/18 16:35 Blood - Peripheral Aerobic Blood Culture - Final No growth in 5 days 11/11/18 16:35 Blood - Peripheral Anaerobic Blood Culture - Final No growth in 5 days 11/11/18 16:20 Blood - Peripheral Aerobic Blood Culture - Final No growth in 5 days 11/11/18 16:20 Blood - Peripheral Anaerobic Blood Culture - Final No growth in 5 days Assessment and Plan - Assessment (1) Atrial fibrillation Code(s): I48.91 - Unspecified atrial fibrillation Status: Acute (2) CHF (congestive heart failure) Code(s): I50.9 - Heart failure, unspecified Status: Acute (3) Interstitial lung disease Code(s): J84.9 - Interstitial pulmonary disease, unspecified Status: Acute (4) Atelectasis of both lungs Code(s): J98.11 - Atelectasis Status: Acute (5) Acute respiratory distress Code(s): R06.03 - Acute respiratory distress Status: Acute (6) Acute bronchospasm Code(s): J98.01 - Acute bronchospasm Status: Acute (7) Pneumonia Code(s): J18.9 - Pneumonia, unspecified organism Status: Acute - Plan 1. Will continue Antibiotics Zosyn/vanco/ Flagyl 2. Cont Duoneb nebs TID 3. O2 2 L N/C 4. Arrange home O2 if sats <88 5. Taper Solumedrol 40 mg IV BID 6. BMP ,CBC in am 7. Cardiology evaluation. 8. Cont lasix 20 mg BID (7) Pneumonia Qualifiers: Pneumonia type: due to unspecified organism Laterality: left Lung location: lower lobe of lung Qualified Code(s): J18.1 - Lobar pneumonia, unspecified organism
[2018-11-16] MEDS: Furosemide 20 MG Tablet PO SCH (21:25)
[2018-11-16] MEDS: Enoxaparin Inj 100 MG/ML Syringe SQ SCH (21:25)
[2018-11-16] MEDS: Vancomycin Inj 2,000 MG in Sodium Chlor 0.9% Inj 500 ML IV.SIG SCH (23:17)
[2018-11-17] MEDS: MethylPREDNISolone Sod Succinate Inj 40 MG/ML Vial IV.PUSH SCH ×2 (02:14→13:23)
[2018-11-17] MEDS: Piperacil/Tazo 4.5 GM Premix 4.5 GM/100 ML BAG IV.SIG SCH ×4 (04:00→23:24)
[2018-11-17] MEDS: Chlorhexidine Gluconate 2% 1 Pack (2 Cloths) TOPICAL SCH (04:22)
[2018-11-17 06:17] LABS: INR 1.1 Ratio; Prothrombin Time 10.8 sec (9.8-11.6)
[2018-11-17] MEDS: Lisinopril 20 MG Tablet PO SCH (08:40)
[2018-11-17] MEDS: Digoxin 125 MCG Tablet PO SCH (08:40)
[2018-11-17] MEDS: dilTIAZem CD 180 MG Capsule PO SCH (08:41)
[2018-11-17] MEDS: Carvedilol 12.5 MG Tablet PO SCH ×2 (08:41→21:02)
[2018-11-17] MEDS: Furosemide 20 MG Tablet PO SCH ×2 (08:41→21:02)
[2018-11-17] MEDS: guaiFENesin 600 MG ER Tablet PO SCH ×2 (08:41→21:02)
[2018-11-17] MEDS: Isosorbide Mononitrate 30 MG ER 24HR Tablet (Imdur) PO SCH (08:41)
[2018-11-17] MEDS: Enoxaparin Inj 100 MG/ML Syringe SQ SCH ×2 (08:41→21:03)
[2018-11-17] MEDS: Budesonide-Formoterol 160/4.5 MCG 6 GM Inhaler INH SCH ×2 (08:41→21:06)
[2018-11-17] MEDS ORDERED: Dextrose 50% in Water 50 ML Vial IV.PUSH PRN (09:04)
--- NOTE | 2018-11-17 11:02 | P.PNIM ---
Subjective Interval history: 77-year-old female who is seen for strict pulmonary disease exacerbation, paroxysmal atrial fibrillation. Medical records were reviewed. No acute events overnight. Patient heart rate controlled at this time. Vital signs are stable. Patient remains afebrile. Discussed with daughter at bedside. Is concerned about the patient's respiratory status. She is happy that she is improving. States that she will be available for any translation if needed. Answered all of her questions to her satisfaction. Physical Exam Vital signs: Last Vital Signs Temp 97.7 F 11/17/18 08:00 Pulse 101 H 11/17/18 08:00 Resp 18 11/17/18 08:00 BP 141/84 H 11/17/18 08:00 Pulse Ox 98 11/17/18 08:00 Intake & Output 11/15/18 11/16/18 11/17/18 11/18/18 06:59 06:59 06:59 06:59 Intake Total 2500 / 2500 1650 / 1650 2580 / 2580 Output Total 2000 / 2000 1200 / 1200 1450 / 1450 Balance 500 / 500 450 / 450 1130 / 1130 Weight 86.5 kg 88.1 kg 90.7 kg Narrative: GENERAL: Well-developed, well-nourished, in no acute distress. alert HEENT: Head is normocephalic without any lesions or masses noted. Facial features are symmetric. Eyes: Extraocular muscles are intact. Conjunctivae were clear. NECK: Supple without any masses. Trachea midline no deviation. No JVD, CARDIAC: Regular rhythm, regular rate. S1/S2 are heard. No murmurs gallops or rubs. LUNGS: Clear to auscultation bilaterally. No wheeze, rhonchi or rales. No use of accessory muscles on inspiration or expiration. ABDOMEN: Soft, nontender. Nondistended. Bowel sounds heard in all 4 quadrants. No organomegaly or masses. Negative rebound, negative guarding EXTREMITIES: No edema, pulses are equal bilaterally. No cyanosis or clubbing NEUROLOGY: Mood and affect appear appropriate. Cranial nerves II through XII grossly intact. Moving all extremities, Results Labs CBC & Chem 7: 11/18/18 05:30 11/18/18 05:30 Labs: Microbiology 11/13/18 21:15 Blood - Peripheral Aerobic Blood Culture - Preliminary No growth in 3 days 11/13/18 21:15 Blood - Peripheral Anaerobic Blood Culture - Preliminary No growth in 3 days 11/13/18 21:20 Blood - Peripheral Aerobic Blood Culture - Preliminary No growth in 3 days 11/13/18 21:20 Blood - Peripheral Anaerobic Blood Culture - Preliminary No growth in 3 days 11/11/18 16:35 Blood - Peripheral Aerobic Blood Culture - Final No growth in 5 days 11/11/18 16:35 Blood - Peripheral Anaerobic Blood Culture - Final No growth in 5 days 11/11/18 16:20 Blood - Peripheral Aerobic Blood Culture - Final No growth in 5 days 11/11/18 16:20 Blood - Peripheral Anaerobic Blood Culture - Final No growth in 5 days Procedures Procedures: ECHOCARDIOGRAM CONCLUSIONS Normal left ventricular size Mild concentric left ventricular hypertrophy Left ventricular systolic function is normal with an estimated ejection fraction in the range of 55-60% Mild annular calcification is present Aortic valve sclerosis is present There is trace tricuspid valve regurgitation The estimated pulmonary arterial pressure is 47 mmhg Trivial pulmonary valve regurgitation There is a small pericardial effusion present Assessment and Plan (1) Atrial fibrillation: Code(s): I48.91 - Unspecified atrial fibrillation Status: Acute (2) CHF (congestive heart failure): Code(s): I50.9 - Heart failure, unspecified Status: Acute (3) Interstitial lung disease: Code(s): J84.9 - Interstitial pulmonary disease, unspecified Status: Acute (4) Atelectasis of both lungs: Code(s): J98.11 - Atelectasis Status: Acute (5) Acute respiratory distress: Code(s): R06.03 - Acute respiratory distress Status: Acute (6) Acute bronchospasm: Code(s): J98.01 - Acute bronchospasm Status: Acute (7) Pneumonia: Code(s): J18.9 - Pneumonia, unspecified organism Status: Acute Plan Acute hypoxic respiratory failure Likely secondary to chronic objective pulmonary disease exacerbation, bibasilar pneumonia CTA of the chest and indicated airspace consolidation in left lung bases associated with opacification of segmental bronchi at the bases. Findings concerning for aspiration. Ill-defined nodular airspace disease in the right lower lobe suspected infectious/inflammatory etiology. Recommending follow-up examination in 3-6 months. Severe coronary artery calcifications Continue O2 supplementation to maintain O2 sat greater than 92% Continue antibiotics include vancomycin, Zosyn, Flagyl Continue Solu-Medrol 40 mg IV every 12 hours Continue Symbicort inhaler twice daily Continue guaifenesin Sputum culture shows light growth of normal respiratory yan Influenza testing was negative May need home oxygen if unable to wean off prior to discharge Paroxysmal atrial fibrillation, new onset Patient was initially started on Cardizem IV changed to digoxin p.o. Blacksmith Assistant were consulted who recommended continuation of digoxin and full anticoagulation Patient has been started on therapeutic Lovenox with Coumadin for anticoagulation Pharmacy consulted for Coumadin management to maintain INR 2.0-3.0 Echocardiogram: Please see results above Hyperglycemia Check hemoglobin A1c Start Accu-Cheks with sliding scale insulin Hypertension, coronary artery disease with cardiac stenting Home medications were continued to include aspirin, Lipitor, Coreg, Imdur, lisinopril DVT prevention Patient is on Lovenox and Coumadin Discharge Planning: Case management consulted. Anticipate discharge when INR 2.0-3.0. Physical therapy recommending home with home health care PT and wheeled walker Progress Note: Quality VTE Deep Vein Thrombosis/Pulmonary Embolism Present on Admission: No _ (1) CHF (congestive heart failure) Qualifiers: Heart failure chronicity: Heart failure type: (2) Atrial fibrillation Qualifiers: Atrial fibrillation type: (3) Pneumonia Qualifiers: Aspiration pneumonia type: Laterality: left Lung location: lower lobe of lung Pneumonia type: due to unspecified organism Qualified Code(s): J18.1 - Lobar pneumonia, unspecified organism
--- NOTE | 2018-11-17 11:14 | P.DCO ---
Diagnosis (1) Atrial fibrillation: Status: Acute (2) CHF (congestive heart failure): Status: Acute (3) Acute respiratory distress: Status: Acute (4) Pneumonia: Status: Acute Physical Therapy Order: Evaluate and treat, Improve ambulation and Strength and gait training Home Health Nursing Order: Medical education, Signs/symptoms of disease process, CHF education and Nursing assessment with vital signs Case Management Consult Case Management Consult-Home Health: Yes I have seen patient Harriet Connolly on 11/17/18. My clinical findings support the need for the requested home health care services because: Limited mobility due to disease progression, Patient has SOB and Limited ability to care for self I certify that my clinical findings support that this patient is homebound because: Hx COPD - exertion dyspnea/weakness and Unsteady gait/balance _ (1) Atrial fibrillation Qualifiers: Atrial fibrillation type: (2) CHF (congestive heart failure) Qualifiers: Heart failure type: Heart failure chronicity: (3) Pneumonia Qualifiers: Aspiration pneumonia type: Laterality: left Lung location: lower lobe of lung Pneumonia type: due to unspecified organism Qualified Code(s): J18.1 - Lobar pneumonia, unspecified organism
[2018-11-17] MEDS: Insulin NovoLOG Aspart Correctional Sugar Inj SQ SCH ×3 (12:54→21:04)
[2018-11-17 13:41] LABS: Hemoglobin A1c 6.4 % (4.3-6.0)
--- NOTE | 2018-11-17 16:00 | P.PN ---
Subjective Interval history: No chest pains.Breathing better.Still some wheezing and cough. On O2 2 L. Physical Exam Vital signs: Vital Signs 11/16/18 16:00 11/16/18 17:00 11/16/18 18:00 Temperature 98.6 F Pulse Rate 78 84 92 H Respiratory Rate 24 26 H 27 H Blood Pressure 103/77 133/67 120/64 Pulse Oximetry 92 L 93 L 93 L 11/16/18 19:00 11/16/18 19:30 11/16/18 20:00 Temperature 98.9 F 98.9 F Pulse Rate 100 H 100 H Respiratory Rate 29 H 25 H Blood Pressure 115/75 115/75 Pulse Oximetry 100 94 L 94 L 11/16/18 21:00 11/16/18 21:10 11/16/18 22:00 Temperature Pulse Rate 110 H 93 H 99 H Respiratory Rate 20 22 20 Blood Pressure Pulse Oximetry 94 L 94 L 11/16/18 22:05 11/17/18 00:00 11/17/18 02:00 Temperature Pulse Rate 55 L 86 62 Respiratory Rate 20 Blood Pressure 115/75 Pulse Oximetry 96 11/17/18 02:05 11/17/18 03:20 11/17/18 04:00 Temperature Pulse Rate 61 71 77 Respiratory Rate 15 24 Blood Pressure Pulse Oximetry 94 L 11/17/18 05:55 11/17/18 07:00 11/17/18 08:00 Temperature 97.7 F Pulse Rate 96 H 101 H Respiratory Rate 15 30 H Blood Pressure 135/85 Pulse Oximetry 94 L 98 98 11/17/18 09:00 11/17/18 10:00 11/17/18 11:00 Temperature Pulse Rate 110 H 98 H Respiratory Rate 37 H 24 Blood Pressure 122/85 140/72 110/63 Pulse Oximetry 93 L 94 L 91 L 11/17/18 12:00 11/17/18 13:45 Temperature Pulse Rate 76 66 Respiratory Rate 28 H Blood Pressure Pulse Oximetry Intake & Output 11/16/18 11/17/18 11/17/18 18:59 06:59 18:59 Intake Total 1120 / 1120 1460 / 1460 440 / 440 Output Total 900 / 900 550 / 550 400 / 400 Balance 220 / 220 910 / 910 40 / 40 Weight 90.7 kg Intake: IV 400 / 400 1340 / 1340 200 / 200 Zosyn 4.5 GM Premix 4.5 gm In 200 / 200 200 / 200 100 / 100 100 ml @ 200 mls/hr IV.SIG Q6H [facility] Rx#:[id number] Vancomycin Inj 2,000 MG In NS 1040 / 1040 Inj 500 ML @ 250 mls/hr IV.SIG Q24H [facility] Rx#:[id number] Flagyl 500 MG Inj 100 ML @ 100 200 / 200 100 / 100 100 / 100 mls/hr IV.SIG Q8H [facility] Rx#: [id number] Oral 720 / 720 120 / 120 240 / 240 Output: Urine 900 / 900 550 / 550 400 / 400 Other: Date of Last Bowel Movement 11/17/18 # Bowel Movements 0 2 Narrative: GENERAL: Well-developed, elderly W/F , in no acute distress. alert HEENT: Head is normocephalic without any lesions or masses noted. Facial features are symmetric. Eyes: Extraocular muscles are intact. Conjunctivae were clear. NECK: Supple without any masses. Trachea midline no deviation. No JVD, CARDIAC: Regular rhythm, regular rate. S1/S2 are heard. No murmurs gallops or rubs. LUNGS: Basal crackles. No use of accessory muscles . ABDOMEN: Soft, nontender. Nondistended. Bowel sounds heard in all 4 quadrants. No organomegaly or masses. Negative rebound, negative guarding EXTREMITIES: No edema, pulses are equal bilaterally. No cyanosis or clubbing NEUROLOGY: Mood and affect appear appropriate. Moving all extremities, Results - Labs CBC & Chem 7: 11/16/18 04:35 11/16/18 04:35 Laboratory Results - last 24 hr 11/17/18 11/17/18 11/17/18 05:37 10:09 12:53 PT 10.8 INR 1.1 POC Glucose 237 H Hemoglobin A1c 6.4 H Microbiology 11/13/18 21:15 Blood - Peripheral Aerobic Blood Culture - Preliminary No growth in 4 days 11/13/18 21:15 Blood - Peripheral Anaerobic Blood Culture - Preliminary No growth in 4 days 11/13/18 21:20 Blood - Peripheral Aerobic Blood Culture - Preliminary No growth in 4 days 11/13/18 21:20 Blood - Peripheral Anaerobic Blood Culture - Preliminary No growth in 4 days 11/11/18 16:35 Blood - Peripheral Aerobic Blood Culture - Final No growth in 5 days 11/11/18 16:35 Blood - Peripheral Anaerobic Blood Culture - Final No growth in 5 days 11/11/18 16:20 Blood - Peripheral Aerobic Blood Culture - Final No growth in 5 days 11/11/18 16:20 Blood - Peripheral Anaerobic Blood Culture - Final No growth in 5 days - Procedures ECHOCARDIOGRAM CONCLUSIONS Normal left ventricular size Mild concentric left ventricular hypertrophy Left ventricular systolic function is normal with an estimated ejection fraction in the range of 55-60% Mild annular calcification is present Aortic valve sclerosis is present There is trace tricuspid valve regurgitation The estimated pulmonary arterial pressure is 47 mmhg Trivial pulmonary valve regurgitation There is a small pericardial effusion present Assessment and Plan - Assessment (1) Atrial fibrillation Code(s): I48.91 - Unspecified atrial fibrillation Status: Acute (2) CHF (congestive heart failure) Code(s): I50.9 - Heart failure, unspecified Status: Acute (3) Interstitial lung disease Code(s): J84.9 - Interstitial pulmonary disease, unspecified Status: Acute (4) Atelectasis of both lungs Code(s): J98.11 - Atelectasis Status: Acute (5) Acute respiratory distress Code(s): R06.03 - Acute respiratory distress Status: Acute (6) Acute bronchospasm Code(s): J98.01 - Acute bronchospasm Status: Acute (7) Pneumonia Code(s): J18.9 - Pneumonia, unspecified organism Status: Acute - Plan 1. Will continue Antibiotics Zosyn/vanco/ Flagyl 2. Cont Duoneb nebs TID 3. O2 2 L N/C 4. Arrange home O2 if sats <88 5. Solumedrol 40 mg IV BID 6. CXR in am 7. PFT at bedside 8. Cont lasix 20 mg BID (7) Pneumonia Qualifiers: Pneumonia type: due to unspecified organism Laterality: left Lung location: lower lobe of lung Qualified Code(s): J18.1 - Lobar pneumonia, unspecified organism
[2018-11-17] MEDS: Vancomycin Inj 2,000 MG in Sodium Chlor 0.9% Inj 500 ML IV.SIG SCH (21:02)
[2018-11-18] MEDS: MethylPREDNISolone Sod Succinate Inj 40 MG/ML Vial IV.PUSH SCH (02:20)
[2018-11-18] MEDS: Chlorhexidine Gluconate 2% 1 Pack (2 Cloths) TOPICAL SCH (04:06)
[2018-11-18] MEDS: Piperacil/Tazo 4.5 GM Premix 4.5 GM/100 ML BAG IV.SIG SCH ×4 (04:06→22:57)
[2018-11-18 06:23] LABS: Baso % (Auto) 0.2 % (0.0-2.0); Eos % (Auto) 0.1 % (0.0-4.0); Hematocrit 41.2 % (35.0-46.0); Hemoglobin 13.7 gm/dL (11.6-15.3); Lymph # (Auto) 1.4 th/mm3 (1.0-4.8); Lymph % (Auto) 14.2 % (9.0-44.0); Mean Corpuscular HGB Conc 33.3 % (32.0-36.0); Mean Corpuscular Volume 87.3 fL (80.0-100.0); Mean Platelet Volume 8.2 fL (7.0-11.0); Mono # (Auto) 0.6 th/mm3 (0.0-0.9); Mono % (Auto) 6.4 % (0.0-8.0); Neut # (Auto) 8.1 th/mm3 (1.8-7.7); Neut % (Auto) 79.1 % (16.0-70.0); Platelet Count 327 th/mm3 (150-450); Red Blood Count 4.72 mil/mm3 (4.00-5.30); Red Cell Distribution Width 13.8 % (11.6-17.2); White Blood Count 10.1 th/mm3 (4.0-11.0)
[2018-11-18 06:33] LABS: Potassium 3.9 meq/L (3.5-5.1)
[2018-11-18 06:38] LABS: Carbon Dioxide 28.8 meq/L (21.0-32.0)
[2018-11-18] MEDS: Digoxin 125 MCG Tablet PO SCH (10:12)
[2018-11-18] MEDS: Insulin NovoLOG Aspart Correctional Sugar Inj SQ SCH ×4 (10:12→22:42)
[2018-11-18] MEDS: dilTIAZem CD 180 MG Capsule PO SCH (10:12)
[2018-11-18] MEDS: Isosorbide Mononitrate 30 MG ER 24HR Tablet (Imdur) PO SCH (10:13)
[2018-11-18] MEDS: Furosemide 20 MG Tablet PO SCH ×2 (10:13→22:53)
[2018-11-18] MEDS: Carvedilol 12.5 MG Tablet PO SCH ×2 (10:13→22:53)
[2018-11-18] MEDS: Enoxaparin Inj 100 MG/ML Syringe SQ SCH ×2 (10:16→22:52)
[2018-11-18] MEDS: guaiFENesin 600 MG ER Tablet PO SCH ×2 (10:20→22:53)
[2018-11-18] MEDS: Lisinopril 20 MG Tablet PO SCH (10:21)
[2018-11-18] MEDS: Budesonide-Formoterol 160/4.5 MCG 6 GM Inhaler INH SCH ×2 (10:28→22:52)
--- NOTE | 2018-11-18 10:46 | P.PNIM ---
Subjective Interval history: 69-year-old female who is seen examined today for follow-up on chronic effect bone disease exacerbation, H fibrillation. Patient appears to be resting comfortably. Patient indicating that her respiratory status about the same as it was yesterday. Patient indicated that she did not sleep well last night. Vital signs are stable. Patient remains afebrile. Physical Exam Vital signs: Last Vital Signs Temp 96.3 F L 11/18/18 08:00 Pulse 72 11/18/18 08:00 Resp 18 11/18/18 08:00 BP 138/71 11/18/18 08:00 Pulse Ox 94 L 11/18/18 08:00 Intake & Output 11/16/18 11/17/18 11/18/18 11/19/18 06:59 06:59 06:59 06:59 Intake Total 1650 / 1650 2580 / 2580 1900 / 1900 100 / 100 Output Total 1200 / 1200 1450 / 1450 1600 / 1600 Balance 450 / 450 1130 / 1130 300 / 300 100 / 100 Weight 88.1 kg 90.7 kg 91.7 kg Narrative: GENERAL: Well-developed, well-nourished, in no acute distress. alert HEENT: Head is normocephalic without any lesions or masses noted. Facial features are symmetric. Eyes: Extraocular muscles are intact. Conjunctivae were clear. NECK: Supple without any masses. Trachea midline no deviation. No JVD, CARDIAC: Regular rhythm, regular rate. S1/S2 are heard. No murmurs gallops or rubs. LUNGS: Clear to auscultation bilaterally. No wheeze, rhonchi or rales. No use of accessory muscles on inspiration or expiration. ABDOMEN: Soft, nontender. Nondistended. Bowel sounds heard in all 4 quadrants. No organomegaly or masses. Negative rebound, negative guarding EXTREMITIES: No edema, pulses are equal bilaterally. No cyanosis or clubbing NEUROLOGY: Mood and affect appear appropriate. Cranial nerves II through XII grossly intact. Moving all extremities, Results Labs CBC & Chem 7: 11/18/18 05:30 11/18/18 05:30 Labs: Microbiology 11/13/18 21:15 Blood - Peripheral Aerobic Blood Culture - Preliminary No growth in 4 days 11/13/18 21:15 Blood - Peripheral Anaerobic Blood Culture - Preliminary No growth in 4 days 11/13/18 21:20 Blood - Peripheral Aerobic Blood Culture - Preliminary No growth in 4 days 11/13/18 21:20 Blood - Peripheral Anaerobic Blood Culture - Preliminary No growth in 4 days Procedures Procedures: ECHOCARDIOGRAM CONCLUSIONS Normal left ventricular size Mild concentric left ventricular hypertrophy Left ventricular systolic function is normal with an estimated ejection fraction in the range of 55-60% Mild annular calcification is present Aortic valve sclerosis is present There is trace tricuspid valve regurgitation The estimated pulmonary arterial pressure is 47 mmhg Trivial pulmonary valve regurgitation There is a small pericardial effusion present Assessment and Plan (1) Atrial fibrillation: Code(s): I48.91 - Unspecified atrial fibrillation Status: Acute (2) CHF (congestive heart failure): Code(s): I50.9 - Heart failure, unspecified Status: Acute (3) Interstitial lung disease: Code(s): J84.9 - Interstitial pulmonary disease, unspecified Status: Acute (4) Atelectasis of both lungs: Code(s): J98.11 - Atelectasis Status: Acute (5) Acute respiratory distress: Code(s): R06.03 - Acute respiratory distress Status: Acute (6) Acute bronchospasm: Code(s): J98.01 - Acute bronchospasm Status: Acute (7) Pneumonia: Code(s): J18.9 - Pneumonia, unspecified organism Status: Acute Plan Acute hypoxic respiratory failure Likely secondary to chronic objective pulmonary disease exacerbation, bibasilar pneumonia CTA of the chest and indicated airspace consolidation in left lung bases associated with opacification of segmental bronchi at the bases. Findings concerning for aspiration. Ill-defined nodular airspace disease in the right lower lobe suspected infectious/inflammatory etiology. Recommending follow-up examination in 3-6 months. Severe coronary artery calcifications Continue O2 supplementation to maintain O2 sat greater than 92% Continue antibiotics include vancomycin, Zosyn, Flagyl Continue Solu-Medrol 40 mg IV every 12 hours, changed to prednisone 20 mg twice daily Continue Symbicort inhaler twice daily Continue guaifenesin Sputum culture shows light growth of normal respiratory yan Influenza testing was negative May need home oxygen if unable to wean off prior to discharge Paroxysmal atrial fibrillation, new onset initially started on Cardizem IV which was discontinued Patient started on digoxin with rate control. Telephone Coin Box Collector were consulted who recommended continuation of digoxin and full anticoagulation Continue Lovenox with Coumadin for anticoagulation Pharmacy consulted for Coumadin management to maintain INR 2.0-3.0 Echocardiogram: Please see results above Hyperglycemia Could be secondary to steroid use Hemoglobin A1c 6.4 Continue Accu-Cheks with sliding scale insulin Continue monitor to see if glucose improves after changing to p.o. prednisone Hypertension, coronary artery disease with cardiac stenting Home medications were continued to include aspirin, Lipitor, Coreg, Imdur, lisinopril DVT prevention Patient is on Lovenox and Coumadin Discharge Planning: Case management consulted. Anticipate discharge when INR 2.0-3.0. Physical therapy recommending home with home health care PT and wheeled walker Progress Note: Quality VTE Deep Vein Thrombosis/Pulmonary Embolism Present on Admission: No _ (1) CHF (congestive heart failure) Qualifiers: Heart failure chronicity: Heart failure type: (2) Atrial fibrillation Qualifiers: Atrial fibrillation type: (3) Pneumonia Qualifiers: Aspiration pneumonia type: Laterality: left Lung location: lower lobe of lung Pneumonia type: due to unspecified organism Qualified Code(s): J18.1 - Lobar pneumonia, unspecified organism
[2018-11-18 17:01] LABS: INR 1.3 Ratio; Prothrombin Time 13.5 sec (9.8-11.6)
--- NOTE | 2018-11-18 19:04 | P.PN ---
Subjective Interval history: Doing better. On O2 3 L. She has mild pulmonary HTN. Poss from pulm Fibrosis. Coughs up very little . Unable to do PFT due to language barrier. Physical Exam Vital signs: Vital Signs 11/17/18 19:15 11/17/18 19:19 11/17/18 20:00 Temperature 97.7 F Pulse Rate 76 66 Respiratory Rate 18 18 Blood Pressure 124/74 Pulse Oximetry 96 96 91 L 11/17/18 20:09 11/18/18 00:00 11/18/18 02:35 Temperature 97.0 F L Pulse Rate 97 H 88 56 L Respiratory Rate 18 25 H Blood Pressure 124/71 Pulse Oximetry 96 11/18/18 04:00 11/18/18 04:05 11/18/18 07:30 Temperature 97.2 F L Pulse Rate 83 73 78 Respiratory Rate 18 20 Blood Pressure 131/76 Pulse Oximetry 93 L 96 11/18/18 08:00 11/18/18 11:45 11/18/18 12:00 Temperature 96.3 F L 96.1 F L Pulse Rate 79 87 87 Respiratory Rate 18 18 Blood Pressure 138/71 127/77 Pulse Oximetry 94 L 94 L 11/18/18 14:01 11/18/18 14:04 11/18/18 16:00 Temperature 96.4 F L Pulse Rate 69 84 Respiratory Rate 18 18 Blood Pressure 104/63 Pulse Oximetry 95 94 L Intake & Output 11/18/18 11/18/18 11/19/18 06:59 18:59 06:59 Intake Total 1020 / 1020 400 / 400 Output Total 800 / 800 800 / 800 Balance 220 / 220 -400 / -400 Weight 91.7 kg Intake: IV 820 / 820 400 / 400 Zosyn 4.5 GM Premix 4.5 gm In 200 / 200 200 / 200 100 ml @ 200 mls/hr IV.SIG Q6H [facility] Rx#:[id number] Vancomycin Inj 2,000 MG In NS 520 / 520 Inj 500 ML @ 250 mls/hr IV.SIG Q24H [facility] Rx#:[id number] Flagyl 500 MG Inj 100 ML @ 100 100 / 100 200 / 200 mls/hr IV.SIG Q8H [facility] Rx#: [id number] Oral Supplement 200 / 200 Output: Urine 800 / 800 800 / 800 Other: Date of Last Bowel Movement 11/17/18 11/18/18 # Bowel Movements 3 Narrative: GENERAL: Well-developed, well-nourished, in no acute distress. alert HEENT: Head is normocephalic without any lesions or masses noted. Facial features are symmetric. Eyes: Extraocular muscles are intact. Conjunctivae were clear. NECK: Supple without any masses. Trachea midline no deviation. No JVD, CARDIAC: Regular rhythm, regular rate. S1/S2 are heard. No murmurs gallops or rubs. LUNGS: Basal crackles heard . No use of accessory muscles on inspiration or expiration. ABDOMEN: Soft, nontender. Nondistended. Bowel sounds heard in all 4 quadrants. No organomegaly or masses. Negative rebound, negative guarding EXTREMITIES: No edema, pulses are equal bilaterally. No cyanosis or clubbing NEUROLOGY: Mood and affect appear appropriate. . Moving all extremities, Results - Labs CBC & Chem 7: 11/18/18 05:30 11/18/18 05:30 Laboratory Results - last 24 hr 11/17/18 11/18/18 11/18/18 20:32 05:30 05:30 CBC w Diff Auto diff final WBC 10.1 RBC 4.72 Hgb 13.7 Hct 41.2 MCV 87.3 MCH 29.0 MCHC 33.3 RDW 13.8 Plt Count 327 MPV 8.2 Neut % (Auto) 79.1 H Lymph % (Auto) 14.2 Sharkey % (Auto) 6.4 Eos % (Auto) 0.1 Baso % (Auto) 0.2 Neut # (Auto) 8.1 H Lymph # (Auto) 1.4 Sharkey # (Auto) 0.6 Eos # (Auto) 0.0 Baso # (Auto) 0.0 WBC Differential . Differential Comment . PT INR Sodium 138 Potassium 3.9 Chloride 101 Carbon Dioxide 28.8 Anion Gap 8 BUN 26 H Creatinine 0.82 Estimated GFR 67 L POC Glucose 160 H Random Glucose 162 H Calcium 8.0 L 11/18/18 11/18/18 11/18/18 07:38 11:18 16:30 CBC w Diff WBC RBC Hgb Hct MCV MCH MCHC RDW Plt Count MPV Neut % (Auto) Lymph % (Auto) Sharkey % (Auto) Eos % (Auto) Baso % (Auto) Neut # (Auto) Lymph # (Auto) Sharkey # (Auto) Eos # (Auto) Baso # (Auto) WBC Differential Differential Comment PT 13.5 H INR 1.3 Sodium Potassium Chloride Carbon Dioxide Anion Gap BUN Creatinine Estimated GFR POC Glucose 230 H 158 H Random Glucose Calcium 11/18/18 16:31 CBC w Diff WBC RBC Hgb Hct MCV MCH MCHC RDW Plt Count MPV Neut % (Auto) Lymph % (Auto) Sharkey % (Auto) Eos % (Auto) Baso % (Auto) Neut # (Auto) Lymph # (Auto) Sharkey # (Auto) Eos # (Auto) Baso # (Auto) WBC Differential Differential Comment PT INR Sodium Potassium Chloride Carbon Dioxide Anion Gap BUN Creatinine Estimated GFR POC Glucose 156 H Random Glucose Calcium Microbiology 11/13/18 21:15 Blood - Peripheral Aerobic Blood Culture - Final No growth in 5 days 11/13/18 21:15 Blood - Peripheral Anaerobic Blood Culture - Final No growth in 5 days 11/13/18 21:20 Blood - Peripheral Aerobic Blood Culture - Final No growth in 5 days 11/13/18 21:20 Blood - Peripheral Anaerobic Blood Culture - Final No growth in 5 days - Procedures ECHOCARDIOGRAM CONCLUSIONS Normal left ventricular size Mild concentric left ventricular hypertrophy Left ventricular systolic function is normal with an estimated ejection fraction in the range of 55-60% Mild annular calcification is present Aortic valve sclerosis is present There is trace tricuspid valve regurgitation The estimated pulmonary arterial pressure is 47 mmhg Trivial pulmonary valve regurgitation There is a small pericardial effusion present Assessment and Plan - Assessment (1) Atrial fibrillation Code(s): I48.91 - Unspecified atrial fibrillation Status: Acute (2) CHF (congestive heart failure) Code(s): I50.9 - Heart failure, unspecified Status: Acute (3) Interstitial lung disease Code(s): J84.9 - Interstitial pulmonary disease, unspecified Status: Acute (4) Atelectasis of both lungs Code(s): J98.11 - Atelectasis Status: Acute (5) Acute respiratory distress Code(s): R06.03 - Acute respiratory distress Status: Acute (6) Acute bronchospasm Code(s): J98.01 - Acute bronchospasm Status: Acute (7) Pneumonia Code(s): J18.9 - Pneumonia, unspecified organism Status: Acute - Plan 1. Will D/C Antibiotics/vanco/ Flagyl 2. Cont Duoneb nebs TID 3. O2 2 L N/C 4. Arrange home O2 if sats <88 5. Solumedrol 40 mg IV BID 6. CXR in am 7. Add PO flagyl 500 mg TID X 5 days 8. Cont lasix 20 mg BID 9. CBC,BMP (7) Pneumonia Qualifiers: Pneumonia type: due to unspecified organism Laterality: left Lung location: lower lobe of lung Qualified Code(s): J18.1 - Lobar pneumonia, unspecified organism
[2018-11-18] MEDS ORDERED: Pharmacy Ordered Lab Info OTHER ONE (21:45)
[2018-11-18] MEDS: metroNIDAZOLE 500 MG Tablet PO SCH (22:54)
[2018-11-18] MEDS: predniSONE 20 MG Tablet PO SCH (22:56)
[2018-11-19] MEDS: ALPRAZolam 0.25 MG Tablet PO PRN (00:23)
[2018-11-19] MEDS: Chlorhexidine Gluconate 2% 1 Pack (2 Cloths) TOPICAL SCH (05:10)
[2018-11-19] MEDS: Piperacil/Tazo 4.5 GM Premix 4.5 GM/100 ML BAG IV.SIG SCH ×4 (05:29→22:00)
[2018-11-19] MEDS: metroNIDAZOLE 500 MG Tablet PO SCH ×3 (05:55→22:00)
--- NOTE | 2018-11-19 06:37 | XR ---
EXAM DATE: 11/19/2018 6:32 AM EST AGE/SEX: 77 years / Female INDICATIONS: Shortness of breath. CLINICAL DATA: This is the patient's subsequent encounter. Patient reports that signs and symptoms h ave been present for 1 week and indicates a pain score of Nonresponsive. MEDICAL/SURGICAL HISTORY: . Cardiovascular disease. Hypertension. Chronic obstructive pulmonary disease. None. COMPARISON: [facility], CHEST 1V SINGLE AP, 11/15/2018. . FINDINGS: The heart size is normal. There is increased density at the right medial base. The left lung is gross ly clear. The costophrenic angles are clear. CONCLUSION: Right medial base consolidation or atelectasis. Electronically signed by: Jeremiah Romero MD Board Certified Radiologist 11/19/2018 6:35 AM EST
[2018-11-19 06:53] LABS: INR 1.6 Ratio; Prothrombin Time 16.6 sec (9.8-11.6)
[2018-11-19] MEDS: dilTIAZem CD 180 MG Capsule PO SCH ×2 (07:51→08:12)
[2018-11-19] MEDS: Carvedilol 12.5 MG Tablet PO SCH ×3 (07:51→22:00)
[2018-11-19] MEDS: Digoxin 125 MCG Tablet PO SCH ×2 (07:52→08:12)
[2018-11-19] MEDS: Lisinopril 20 MG Tablet PO SCH ×2 (07:52→08:13)
[2018-11-19] MEDS: Isosorbide Mononitrate 30 MG ER 24HR Tablet (Imdur) PO SCH ×2 (07:52→08:12)
[2018-11-19] MEDS: Furosemide 20 MG Tablet PO SCH ×3 (07:53→22:00)
[2018-11-19] MEDS: predniSONE 20 MG Tablet PO SCH ×3 (07:54→22:00)
[2018-11-19] MEDS: guaiFENesin 600 MG ER Tablet PO SCH ×3 (07:55→22:00)
[2018-11-19] MEDS: Enoxaparin Inj 100 MG/ML Syringe SQ SCH ×3 (07:55→22:04)
[2018-11-19] MEDS: Budesonide-Formoterol 160/4.5 MCG 6 GM Inhaler INH SCH ×3 (07:56→22:01)
[2018-11-19] MEDS: Insulin NovoLOG Aspart Correctional Sugar Inj SQ SCH ×4 (08:03→22:02)
--- NOTE | 2018-11-19 12:42 | P.PNIM ---
Subjective Interval history: 77-year-old female who is seen examined today for follow-up on chronic obstructive pulmonary disease. Patient is down to 2 L nasal cannula. She indicates that her breathing is better. She still has a productive cough. Vital signs are stable. Patient remains afebrile. Physical Exam Vital signs: Last Vital Signs Temp 96.3 F L 11/19/18 10:10 Pulse 73 11/19/18 10:10 Resp 16 11/19/18 10:10 BP 111/73 11/19/18 10:10 Pulse Ox 92 L 11/19/18 10:10 Intake & Output 11/17/18 11/18/18 11/19/18 11/20/18 06:59 06:59 06:59 06:59 Intake Total 2580 / 2580 1900 / 1900 500 / 500 200 / 200 Output Total 1450 / 1450 1600 / 1600 1800 / 1800 Balance 1130 / 1130 300 / 300 -1300 / -1300 200 / 200 Weight 90.7 kg 91.7 kg Narrative: GENERAL: Well-developed, well-nourished, in no acute distress. alert HEENT: Head is normocephalic without any lesions or masses noted. Facial features are symmetric. Eyes: Extraocular muscles are intact. Conjunctivae were clear. NECK: Supple without any masses. Trachea midline no deviation. No JVD, CARDIAC: Regular rhythm, regular rate. S1/S2 are heard. No murmurs gallops or rubs. LUNGS: Mild rhonchi heard, no wheeze or rales. No use of accessory muscles on inspiration or expiration. ABDOMEN: Soft, nontender. Nondistended. Bowel sounds heard in all 4 quadrants. No organomegaly or masses. Negative rebound, negative guarding EXTREMITIES: No edema, pulses are equal bilaterally. No cyanosis or clubbing NEUROLOGY: Mood and affect appear appropriate. Cranial nerves II through XII grossly intact. Moving all extremities, Results Labs CBC & Chem 7: 11/19/18 15:15 11/19/18 15:15 Labs: Microbiology 11/13/18 21:15 Blood - Peripheral Aerobic Blood Culture - Final No growth in 5 days 11/13/18 21:15 Blood - Peripheral Anaerobic Blood Culture - Final No growth in 5 days 11/13/18 21:20 Blood - Peripheral Aerobic Blood Culture - Final No growth in 5 days 11/13/18 21:20 Blood - Peripheral Anaerobic Blood Culture - Final No growth in 5 days Imaging Imaging: Impressions Chest X-Ray 11/19/18 00:00 CONCLUSION: Right medial base consolidation or atelectasis. Procedures Procedures: ECHOCARDIOGRAM CONCLUSIONS Normal left ventricular size Mild concentric left ventricular hypertrophy Left ventricular systolic function is normal with an estimated ejection fraction in the range of 55-60% Mild annular calcification is present Aortic valve sclerosis is present There is trace tricuspid valve regurgitation The estimated pulmonary arterial pressure is 47 mmhg Trivial pulmonary valve regurgitation There is a small pericardial effusion present Assessment and Plan (1) Atrial fibrillation: Code(s): I48.91 - Unspecified atrial fibrillation Status: Acute (2) CHF (congestive heart failure): Code(s): I50.9 - Heart failure, unspecified Status: Acute (3) Interstitial lung disease: Code(s): J84.9 - Interstitial pulmonary disease, unspecified Status: Acute (4) Atelectasis of both lungs: Code(s): J98.11 - Atelectasis Status: Acute (5) Acute respiratory distress: Code(s): R06.03 - Acute respiratory distress Status: Acute (6) Acute bronchospasm: Code(s): J98.01 - Acute bronchospasm Status: Acute (7) Pneumonia: Code(s): J18.9 - Pneumonia, unspecified organism Status: Acute Plan Acute hypoxic respiratory failure Likely secondary to chronic objective pulmonary disease exacerbation, bibasilar pneumonia CTA of the chest and indicated airspace consolidation in left lung bases associated with opacification of segmental bronchi at the bases. Findings concerning for aspiration. Ill-defined nodular airspace disease in the right lower lobe suspected infectious/inflammatory etiology. Recommending follow-up examination in 3-6 months. Severe coronary artery calcifications Continue O2 supplementation to maintain O2 sat greater than 92% Continue antibiotics include vancomycin, Zosyn, Flagyl Continue Prednisone 20 mg twice daily Continue Symbicort inhaler twice daily Continue guaifenesin Sputum culture shows light growth of normal respiratory yan Influenza testing was negative May need home oxygen if unable to wean off prior to discharge Paroxysmal atrial fibrillation, new onset initially started on Cardizem IV which was discontinued Patient started on digoxin with rate control. Utility Arborist were consulted who recommended continuation of digoxin and full anticoagulation Continue Lovenox with Coumadin for anticoagulation Pharmacy consulted for Coumadin management to maintain INR 2.0-3.0 Echocardiogram: Please see results above INR 1.6 today Hyperglycemia secondary to steroid use Hemoglobin A1c 6.4 Continue Accu-Cheks with sliding scale insulin Glucose has improved after changing to p.o. prednisone Hypertension, coronary artery disease with cardiac stenting Home medications were continued to include aspirin, Lipitor, Coreg, Imdur, lisinopril DVT prevention Patient is on Lovenox and Coumadin Discharge Planning: Case management consulted. Anticipate discharge when INR 2.0-3.0. Physical therapy recommending home with home health care PT and wheeled walker Progress Note: Quality VTE Deep Vein Thrombosis/Pulmonary Embolism Present on Admission: No _ (1) CHF (congestive heart failure) Qualifiers: Heart failure chronicity: Heart failure type: (2) Atrial fibrillation Qualifiers: Atrial fibrillation type: (3) Pneumonia Qualifiers: Aspiration pneumonia type: Laterality: left Lung location: lower lobe of lung Pneumonia type: due to unspecified organism Qualified Code(s): J18.1 - Lobar pneumonia, unspecified organism
[2018-11-19] MEDS ORDERED: Sod Chloride 0.9% Inj 1,000 ML IV.SIG ONE (15:00)
--- NOTE | 2018-11-19 15:36 | XR ---
EXAM DATE: 11/19/2018 3:02 PM EST AGE/SEX: 77 years / Female INDICATIONS: Short of breath. CLINICAL DATA: This is the patient's initial encounter. Patient reports that signs and symptoms have been present for 2 weeks and indicates a pain score of 0/10. MEDICAL/SURGICAL HISTORY: Hypertension. Cardiovascular disease. Chronic obstructive pulmonary d isease. Hysterectomy. . COMPARISON: [facility], CHEST 1V SINGLE AP, 11/19/2018. . FINDINGS: Portable AP view of the chest demonstrates a normal-sized cardiac silhouette. Patient is rotated and underinflated and EKG lines overlie the patient. There is mild bibasilar opacity. No pneumothorax or pleural effusion is identified. The bones and soft tissues demonstrate no acute finding. CONCLUSION: Underinflation with mild bibasilar opacity representing atelectasis or airspace consolidation. Electronically signed by: Jeremiah Sorensen MD Board Certified Radiologist 11/19/2018 3:35 PM EST
[2018-11-19 16:00] LABS: Chloride 101 meq/L (98-107); Hematocrit 41.3 % (35.0-46.0); Hemoglobin 13.6 gm/dL (11.6-15.3); Mean Corpuscular Hemoglobin 28.7 pg (27.0-34.0); Mean Platelet Volume 8.2 fL (7.0-11.0); Platelet Count 366 th/mm3 (150-450); Potassium 4.2 meq/L (3.5-5.1); Red Blood Count 4.74 mil/mm3 (4.00-5.30); Red Cell Distribution Width 13.6 % (11.6-17.2); Sodium 139 meq/L (136-145); White Blood Count 14.4 th/mm3 (4.0-11.0)
[2018-11-19 16:07] LABS: Calcium 7.8 mg/dL (8.5-10.1)
[2018-11-19 16:08] LABS: Albumin 2.5 g/dL (3.4-5.0); Anion Gap 9 meq/L (5-15); Carbon Dioxide 29.5 meq/L (21.0-32.0); Glucose,Random 169 mg/dL (74-106)
[2018-11-19 16:20] LABS: Alanine Aminotransferase 23 U/L (10-53); Alkaline Phosphatase 37 U/L (45-117); Aspartate Aminotransferase 13 U/L (15-37); Blood Urea Nitrogen 38 mg/dL (7-18); Glomerular Filtration Rate 40 mL/min (>89); Total Protein 6.1 g/dL (6.4-8.2)
[2018-11-19] MEDS: Amoxicillin/Clavulanate 500/125 MG Tablet PO SCH (22:46)
[2018-11-20] MEDS: metroNIDAZOLE 500 MG Tablet PO SCH ×3 (05:31→22:03)
[2018-11-20] MEDS: Piperacil/Tazo 4.5 GM Premix 4.5 GM/100 ML BAG IV.SIG SCH (05:31)
[2018-11-20 06:34] LABS: INR 2.1 Ratio; Prothrombin Time 21.2 sec (9.8-11.6)
[2018-11-20] MEDS: Insulin NovoLOG Aspart Correctional Sugar Inj SQ SCH ×4 (08:36→22:08)
[2018-11-20] MEDS: Amoxicillin/Clavulanate 500/125 MG Tablet PO SCH ×2 (09:37→22:03)
[2018-11-20] MEDS: guaiFENesin 600 MG ER Tablet PO SCH ×2 (09:38→22:03)
[2018-11-20] MEDS: dilTIAZem CD 180 MG Capsule PO SCH (09:38)
[2018-11-20] MEDS: Budesonide-Formoterol 160/4.5 MCG 6 GM Inhaler INH SCH ×2 (09:38→22:05)
[2018-11-20] MEDS: predniSONE 20 MG Tablet PO SCH (09:38)
[2018-11-20] MEDS: Digoxin 125 MCG Tablet PO SCH (09:39)
[2018-11-20] MEDS ORDERED: Piperacil/Tazo 3.375 GM Premix 3.375 GM/50 ML PIGGYBACK IV.SIG SCH (10:00)
[2018-11-20] MEDS: Enoxaparin Inj 100 MG/ML Syringe SQ SCH (11:27)
[2018-11-20] MEDS: Isosorbide Mononitrate 30 MG ER 24HR Tablet (Imdur) PO SCH (13:52)
[2018-11-20] MEDS: Carvedilol 12.5 MG Tablet PO SCH ×2 (13:52→22:03)
[2018-11-20] MEDS: Furosemide 20 MG Tablet PO SCH (13:52)
[2018-11-20] MEDS: Lisinopril 20 MG Tablet PO SCH (13:52)
--- NOTE | 2018-11-20 13:55 | US ---
EXAM DATE: 11/20/2018 1:47 PM EST AGE/SEX: 77 years / Female INDICATIONS: Right arm pain with bruising and palpable lump. CLINICAL DATA: This is the patient's initial encounter. Patient reports that signs and symptoms have been present for 1 day and indicates a pain score of 7/10. MEDICAL/SURGICAL HISTORY: . Cardiovascular disease. Hypertension. Chronic obstructive pulmonary disease. . Hysterectomy. COMPARISON: No prior exams available for comparison. FINDINGS: The vessels are compressible and augmentation response is documented. No filling defects a re seen. The flow is phasic with respiration. Other: There is a complex heterogeneous subcutaneous collection in the proximal biceps region with a fluid level. This measures 6.5 x 2.8 x 1.7 cm. CONCLUSION: 1. No sonographic evidence for upper extremity DVT. 2. Subcutaneous complex fluid collection in the proximal biceps region measuring 6.5 x 2.8 x 1.7 cm. Overall imaging characteristics are most consistent with a hematoma. Differential considerations wou ld include abscess in the appropriate clinical setting. Electronically signed by: Kirill García MD Board Certified Radiologist 11/20/2018 1:54 PM EST
--- NOTE | 2018-11-20 15:06 | P.PNIM ---
Subjective Interval history: 77-year-old female who is seen examined today in the presence of nursing, Toribio Crawford, interpreting service. Patient has been complaining of right shoulder pain since this morning. She indicates that it started in the middle of night with sudden onset of right shoulder pain where she indicates she cannot lift it up as she is holding it up in the air for us to watch your. Patient has been weaned off of oxygen, physical therapy evaluated patient and indicating she go home with a wheeled walker home health care PT as needed. Vital signs are stable. Patient remains afebrile. Physical Exam Vital signs: Last Vital Signs Temp 96.9 F L 11/20/18 12:00 Pulse 77 11/20/18 14:13 Resp 24 11/20/18 14:13 BP 129/70 11/20/18 12:00 Pulse Ox 91 L 11/20/18 12:00 Intake & Output 11/18/18 11/19/18 11/20/18 11/21/18 06:59 06:59 06:59 06:59 Intake Total 1900 / 1900 500 / 500 1640 / 1640 100 / 100 Output Total 1600 / 1600 1800 / 1800 2100 / 2100 Balance 300 / 300 -1300 / -1300 -460 / -460 100 / 100 Weight 91.7 kg 90.8 kg Narrative: GENERAL: Well-developed, well-nourished, in no acute distress. alert HEENT: Head is normocephalic without any lesions or masses noted. Facial features are symmetric. Eyes: Extraocular muscles are intact. Conjunctivae were clear. NECK: Supple without any masses. Trachea midline no deviation. No JVD, CARDIAC: Regular rhythm, regular rate. S1/S2 are heard. No murmurs gallops or rubs. LUNGS: Mild rhonchi heard, no wheeze or rales. No use of accessory muscles on inspiration or expiration. ABDOMEN: Soft, nontender. Nondistended. Bowel sounds heard in all 4 quadrants. No organomegaly or masses. Negative rebound, negative guarding EXTREMITIES: No edema, pulses are equal bilaterally. No cyanosis or clubbing NEUROLOGY: Mood and affect appear appropriate. Cranial nerves II through XII grossly intact. Moving all extremities, RIGHT UPPER EXTREMITY: Patient indicating that she is having pain all the way from her right forearm at the brachioradialis up to the right shoulder. States that he gets a pulsating pain up her arm. No palpable masses, fluctuance. Patient has good range of motion of the elbow without any signs of pain. There is intermittent signs of pain with abduction of the shoulder. There is also intermittent response with pain with rotation of the right arm. Upon watching the patient moving around she is moving it without any signs of pain but when you physically palpate and move yourself then appears if she is more painful. Results Labs CBC & Chem 7: 11/19/18 15:15 11/19/18 15:15 Imaging Imaging: Impressions Chest X-Ray 11/19/18 00:00 CONCLUSION: Underinflation with mild bibasilar opacity representing atelectasis or airspace consolidation. Venous Doppler Study 11/20/18 00:00 CONCLUSION: 1. No sonographic evidence for upper extremity DVT. 2. Subcutaneous complex fluid collection in the proximal biceps region measuring 6.5 x 2.8 x 1.7 cm. Overall imaging characteristics are most consistent with a hematoma. Differential considerations would include abscess in the appropriate clinical setting. Procedures Procedures: ECHOCARDIOGRAM CONCLUSIONS Normal left ventricular size Mild concentric left ventricular hypertrophy Left ventricular systolic function is normal with an estimated ejection fraction in the range of 55-60% Mild annular calcification is present Aortic valve sclerosis is present There is trace tricuspid valve regurgitation The estimated pulmonary arterial pressure is 47 mmhg Trivial pulmonary valve regurgitation There is a small pericardial effusion present Assessment and Plan (1) Atrial fibrillation: Code(s): I48.91 - Unspecified atrial fibrillation Status: Acute (2) CHF (congestive heart failure): Code(s): I50.9 - Heart failure, unspecified Status: Acute (3) Interstitial lung disease: Code(s): J84.9 - Interstitial pulmonary disease, unspecified Status: Acute (4) Atelectasis of both lungs: Code(s): J98.11 - Atelectasis Status: Acute (5) Acute respiratory distress: Code(s): R06.03 - Acute respiratory distress Status: Acute (6) Acute bronchospasm: Code(s): J98.01 - Acute bronchospasm Status: Acute (7) Pneumonia: Code(s): J18.9 - Pneumonia, unspecified organism Status: Acute Plan Right shoulder pain Ultrasound was performed of the arm which did not indicate any DVT. There is a complex fluid collection at the proximal bicep measuring 6.5 x 2.8 x 1.7 cm. Characteristics are most consistent with a hematoma CT of the shoulder has been requested [place] for pain control Acute hypoxic respiratory failure, resolved Likely secondary to chronic objective pulmonary disease exacerbation, bibasilar pneumonia CTA of the chest and indicated airspace consolidation in left lung bases associated with opacification of segmental bronchi at the bases. Findings concerning for aspiration. Ill-defined nodular airspace disease in the right lower lobe suspected infectious/inflammatory etiology. Recommending follow-up examination in 3-6 months. Severe coronary artery calcifications Continue O2 supplementation to maintain O2 sat greater than 92% Discontinue antibiotics to include vancomycin, Zosyn, Flagyl, start p.o. Augmentin/Flagyl Decrease to prednisone 10 mg twice daily Continue Symbicort inhaler twice daily Continue guaifenesin Sputum culture shows light growth of normal respiratory yan Influenza testing was negative Patient has been weaned off of oxygen Paroxysmal atrial fibrillation, new onset initially started on Cardizem IV which was discontinued Patient started on digoxin with rate control. Well Tester were consulted who recommended continuation of digoxin and full anticoagulation Discontinue Lovenox Pharmacy consulted for Coumadin management to maintain INR 2.0-3.0 Echocardiogram: Please see results above INR 2.1 today Hyperglycemia secondary to steroid use Hemoglobin A1c 6.4 Continue Accu-Cheks with sliding scale insulin Glucose has improved after changing to p.o. prednisone Hypertension, coronary artery disease with cardiac stenting Home medications were continued to include aspirin, Lipitor, Coreg, Imdur, lisinopril DVT prevention Patient is on Coumadin Discharge Planning: Discharge planning within 24-48 hours. Depends on patient' s response to treatment, workup for right shoulder Progress Note: Quality VTE Deep Vein Thrombosis/Pulmonary Embolism Present on Admission: No _ (1) CHF (congestive heart failure) Qualifiers: Heart failure chronicity: Heart failure type: (2) Atrial fibrillation Qualifiers: Atrial fibrillation type: (3) Pneumonia Qualifiers: Aspiration pneumonia type: Laterality: left Lung location: lower lobe of lung Pneumonia type: due to unspecified organism Qualified Code(s): J18.1 - Lobar pneumonia, unspecified organism
--- NOTE | 2018-11-20 15:15 | CT ---
EXAM DATE: 11/20/2018 3:08 PM EST AGE/SEX: 77 years / Female INDICATIONS: Right shoulder pain and bruising in upper arm. CLINICAL DATA: This is the patient's initial encounter. Patient reports that signs and symptoms have been present for 1 day and indicates a pain score of 7/10. MEDICAL/SURGICAL HISTORY: Chronic obstructive pulmonary disease. Cardiovascular disease. Hyperten delmy. Hysterectomy. RADIATION DOSE: 19.89 CTDI (mGy) COMPARISON: No prior exams available for comparison. TECHNIQUE: Multiple contiguous axial images were acquired using a multirow detector CT scanner witho ut contrast. Multiplanar reconstruction was performed in the sagittal and coronal planes. Using aut omated exposure control and adjustment of the mA and/or kV according to patient size, radiation dose was kept as low as reasonably achievable to obtain optimal diagnostic quality images. DICOM format i mage data is available electronically for review and comparison. FINDINGS: Alignment is anatomic without fracture or dislocation. Degenerative changes are seen at the common clavicular joint Is a very small fluid collection the deltoid that could be a small hematoma. This measures 1.2 cm. CONCLUSION: 1. Negative for fracture dislocation 2. Degenerative changes 3. Probable small deltoid hematoma. Electronically signed by: Fredrick Saul MD Board Certified Radiologist 11/20/2018 3:14 PM EST
[2018-11-20] MEDS: Lisinopril 10 MG Tablet PO SCH (15:24)
--- NOTE | 2018-11-20 19:04 | P.PN ---
Subjective Interval history: Much better now. Off O2 sat 93. No Fever. On PO Meds. Physical Exam Vital signs: Vital Signs 11/19/18 19:24 11/19/18 20:00 11/19/18 21:00 Temperature 97.0 F L Pulse Rate 83 87 79 Respiratory Rate 18 20 Blood Pressure 108/64 Pulse Oximetry 94 L 92 L 11/20/18 00:00 11/20/18 01:00 11/20/18 03:05 Temperature 98.2 F 96.6 F L Pulse Rate 87 73 87 Respiratory Rate 20 25 H Blood Pressure 113/66 105/57 L Pulse Oximetry 92 L 96 11/20/18 04:00 11/20/18 05:30 11/20/18 07:08 Temperature Pulse Rate 82 73 86 Respiratory Rate 22 18 Blood Pressure 125/73 Pulse Oximetry 94 L 97 11/20/18 08:00 11/20/18 12:00 11/20/18 14:13 Temperature 96.2 F L 96.9 F L Pulse Rate 90 90 77 Respiratory Rate 20 20 24 Blood Pressure 101/54 L 129/70 Pulse Oximetry 91 L 91 L 11/20/18 16:00 Temperature 96.9 F L Pulse Rate 78 Respiratory Rate 20 Blood Pressure 123/73 Pulse Oximetry 92 L Intake & Output 11/20/18 11/20/18 11/21/18 06:59 18:59 06:59 Intake Total 340 / 340 1060 / 1060 Output Total 1200 / 1200 1200 / 1200 Balance -860 / -860 -140 / -140 Weight 90.8 kg Intake: IV 100 / 100 100 / 100 Zosyn 4.5 GM Premix 4.5 gm In 100 / 100 100 / 100 100 ml @ 200 mls/hr IV.SIG Q6H [facility] Rx#:[id number] Oral 240 / 240 960 / 960 Output: Urine 1200 / 1200 1200 / 1200 Other: # Urine Diapers 2 Date of Last Bowel Movement 11/20/18 # Bowel Movements 1 Narrative: GENERAL: Well-developed, well-nourished, in no acute distress. alert. HEENT: Head is normocephalic without any lesions or masses noted. Facial features are symmetric. Eyes: Extraocular muscles are intact. Conjunctivae were clear. NECK: Supple without any masses. Trachea midline no deviation. No JVD, CARDIAC: Regular rhythm, regular rate. S1/S2 are heard. No murmurs gallops or rubs. LUNGS: Occ Basal crackles. No use of accessory muscles . ABDOMEN: Soft, nontender. Nondistended. Bowel sounds heard in all 4 quadrants. No organomegaly or masses. Negative rebound, negative guarding EXTREMITIES: No edema, pulses are equal bilaterally. No cyanosis or clubbing NEUROLOGY: Mood and affect appear appropriate. Moving all extremities, Results - Labs CBC & Chem 7: 11/19/18 15:15 11/19/18 15:15 Laboratory Results - last 24 hr 11/19/18 11/20/18 11/20/18 22:02 04:55 07:59 PT 21.2 H INR 2.1 POC Glucose 157 H 190 H 11/20/18 11/20/18 11:25 16:43 PT INR POC Glucose 130 H 170 H - Imaging Impressions Shoulder CT 11/20/18 00:00 CONCLUSION: 1. Negative for fracture dislocation 2. Degenerative changes 3. Probable small deltoid hematoma. Venous Doppler Study 11/20/18 00:00 CONCLUSION: 1. No sonographic evidence for upper extremity DVT. 2. Subcutaneous complex fluid collection in the proximal biceps region measuring 6.5 x 2.8 x 1.7 cm. Overall imaging characteristics are most consistent with a hematoma. Differential considerations would include abscess in the appropriate clinical setting. - Procedures ECHOCARDIOGRAM CONCLUSIONS Normal left ventricular size Mild concentric left ventricular hypertrophy Left ventricular systolic function is normal with an estimated ejection fraction in the range of 55-60% Mild annular calcification is present Aortic valve sclerosis is present There is trace tricuspid valve regurgitation The estimated pulmonary arterial pressure is 47 mmhg Trivial pulmonary valve regurgitation There is a small pericardial effusion present Assessment and Plan - Assessment (1) Atrial fibrillation Code(s): I48.91 - Unspecified atrial fibrillation Status: Acute (2) CHF (congestive heart failure) Code(s): I50.9 - Heart failure, unspecified Status: Acute (3) Interstitial lung disease Code(s): J84.9 - Interstitial pulmonary disease, unspecified Status: Acute (4) Atelectasis of both lungs Code(s): J98.11 - Atelectasis Status: Acute (5) Acute respiratory distress Code(s): R06.03 - Acute respiratory distress Status: Acute (6) Acute bronchospasm Code(s): J98.01 - Acute bronchospasm Status: Acute (7) Pneumonia Code(s): J18.9 - Pneumonia, unspecified organism Status: Acute - Plan 1. PO Augmentin 500 mg TID X7 days 2. Duoneb nebs TID PRN 3. D/C O2 if sat >90 on RA 4. Arrange home O2 if sats <88 5. D/C Solumedrol 6. Prednisone 20 mg daily and taper over 2 weeks 7.Home in am if stable 8. Cont lasix 20 mg BID (7) Pneumonia Qualifiers: Pneumonia type: due to unspecified organism Laterality: left Lung location: lower lobe of lung Qualified Code(s): J18.1 - Lobar pneumonia, unspecified organism
[2018-11-20] MEDS: predniSONE 10 MG Tablet PO SCH (22:03)
[2018-11-21] MEDS: ALPRAZolam 0.25 MG Tablet PO PRN (02:05)
[2018-11-21] MEDS: metroNIDAZOLE 500 MG Tablet PO SCH (06:03)
[2018-11-21] MEDS: Insulin NovoLOG Aspart Correctional Sugar Inj SQ SCH (07:39)
[2018-11-21 07:47] LABS: INR 2.7 Ratio; Prothrombin Time 26.8 sec (9.8-11.6)
[2018-11-21 08:59] VITALS: BP 120/60; PULSE 76; RESP 20; TEMP 96; O2SAT 93
[2018-11-21] MEDS ORDERED: Furosemide 20 MG Tablet PO SCH (09:00)
[2018-11-21] MEDS: Budesonide-Formoterol 160/4.5 MCG 6 GM Inhaler INH SCH (10:14)
[2018-11-21] MEDS: guaiFENesin 600 MG ER Tablet PO SCH (10:15)
[2018-11-21] MEDS: Amoxicillin/Clavulanate 500/125 MG Tablet PO SCH (10:15)
[2018-11-21] MEDS: predniSONE 10 MG Tablet PO SCH (10:16)
[2018-11-21] MEDS: Lisinopril 10 MG Tablet PO SCH (10:16)
[2018-11-21] MEDS: Isosorbide Mononitrate 30 MG ER 24HR Tablet (Imdur) PO SCH (10:17)
[2018-11-21] MEDS: Carvedilol 12.5 MG Tablet PO SCH (10:17)
[2018-11-21] MEDS: Digoxin 125 MCG Tablet PO SCH (10:17)
[2018-11-21] MEDS: dilTIAZem CD 180 MG Capsule PO SCH (10:18)
--- NOTE | 2018-11-21 10:57 | P.DS ---
DS: Providers Date of admission: 11/15/18 14:57 Primary care physician: Daniel Ashby DO Consults: 11/13/18 16:18 Consult to Pulmonology Routine Consulting Provider: Jeremiah Nation V Reason for Consultation: severe copd exacerbation Notified:: Service Spoke with:: MARCELINO Date Notified:: 11/13/18 Time Notified:: 16:21 Comments:: Per liliya De Leon clerk, this patient needs to be placed on Dr Page ashton' list per him - I called it into Dr Tavarez' service - ML Ordering Provider: KANDIS 11/15/18 14:47 Consult to Cardiology Routine Consulting Provider: Liu Bush Does the patient have a Track Patrol who follows them?: No Preferred Kiln Pusher:: Juvenile Detention Officer Physician Reason for Consultation: New onset a fib went into a fib RVR last evening. 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 The granddaughter states that it all started with a cough and fever 6 days ago. Then, approximately 3 days ago, the patient started developing confusion and lethargy. Those symptoms have become progressively worse. The granddaughter reports that she has treated the patient's cough with some nebulizer treatments. The nebulizer solution was actually prescribed to a family member and not the patient. Nonetheless, the nebs did help the cough and chest congestion. 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 However, she does not need any chronic treatment for respiratory issues. She does not use oxygen at home. She does not normally use nebulizer treatments at home. She also has a history of hypertension, coronary artery disease status post 2 stents and sciatica which limits her ambulation. DS: Diagnosis Discharge Diagnosis (1) Atrial fibrillation: Status: Acute (2) CHF (congestive heart failure): Status: Acute (3) Interstitial lung disease: Status: Acute (4) Atelectasis of both lungs: Status: Acute (5) Acute respiratory distress: Status: Acute (6) Acute bronchospasm: Status: Acute (7) Pneumonia: Status: Acute DS: Summary Acute hypoxic respiratory failure, resolved Likely secondary to chronic objective pulmonary disease exacerbation, bibasilar pneumonia CTA of the chest and indicated airspace consolidation in left lung bases associated with opacification of segmental bronchi at the bases. Findings concerning for aspiration. Ill-defined nodular airspace disease in the right lower lobe suspected infectious/inflammatory etiology. Recommending follow-up examination in 3-6 months. Severe coronary artery calcifications Continue O2 supplementation to maintain O2 sat greater than 92% Patient was on IV antibiotics to include vancomycin, Zosyn, Flagyl. Patient was converted to p.o. medication of Augmentin and Flagyl for another 7 days Patient was weaned down to prednisone 10 mg twice a day, patient will not require continuation of prednisone upon discharge Continue Symbicort inhaler twice daily Continue guaifenesin Sputum culture shows light growth of normal respiratory yan Influenza testing was negative Patient has been weaned off of oxygen Patient will require outpatient follow-up with Dr. Ochoa Paroxysmal atrial fibrillation, new onset initially started on Cardizem IV which was discontinued Patient started on digoxin with rate control. Track Patrol were consulted who recommended continuation of digoxin and full anticoagulation Patient was started on Lovenox until INR was low and then it was discontinued Pharmacy manage Coumadin to maintain INR 2.0-3.0 Echocardiogram: Please see results above INR 2.7 today Patient given prescription to have PT/INR done at [facility] weekly with results to go to Dr. Ashby Hyperglycemia secondary to steroid use Hemoglobin A1c 6.4 Continue Accu-Cheks with sliding scale insulin Glucose did improve after changing to p.o. prednisone Hypertension, coronary artery disease with cardiac stenting Home medications were continued to include aspirin, Lipitor, Coreg, Imdur, lisinopril Right shoulder pain Ultrasound was performed of the arm which did not indicate any DVT. There is a complex fluid collection at the proximal bicep measuring 6.5 x 2.8 x 1.7 cm. Characteristics are most consistent with a hematoma CT of the shoulder was performed and did not indicate any acute abnormality Ophelia for pain control Patient indicates that she will use Motrin upon discharge Time Spent with Patient Total time spent providing and/or coordinating discharge services: Greater than 30 minutes Quality: VTE Deep Vein Thrombosis/Pulmonary Embolism Present on Admission: No Exam Narrative Exam Narrative: GENERAL: Well-developed, well-nourished, in no acute distress. alert HEENT: Head is normocephalic without any lesions or masses noted. Facial features are symmetric. Eyes: Extraocular muscles are intact. Conjunctivae were clear. NECK: Supple without any masses. Trachea midline no deviation. No JVD, CARDIAC: Regular rhythm, regular rate. S1/S2 are heard. No murmurs gallops or rubs. LUNGS: Mild rhonchi heard, no wheeze or rales. No use of accessory muscles on inspiration or expiration. ABDOMEN: Soft, nontender. Nondistended. Bowel sounds heard in all 4 quadrants. No organomegaly or masses. Negative rebound, negative guarding EXTREMITIES: No edema, pulses are equal bilaterally. No cyanosis or clubbing NEUROLOGY: Mood and affect appear appropriate. Cranial nerves II through XII grossly intact. Moving all extremities, RIGHT UPPER EXTREMITY: Arm pain and edema are much improved today. Results Procedures completed during hospitalization: ECHOCARDIOGRAM CONCLUSIONS Normal left ventricular size Mild concentric left ventricular hypertrophy Left ventricular systolic function is normal with an estimated ejection fraction in the range of 55-60% Mild annular calcification is present Aortic valve sclerosis is present There is trace tricuspid valve regurgitation The estimated pulmonary arterial pressure is 47 mmhg Trivial pulmonary valve regurgitation There is a small pericardial effusion present Labs on day of discharge: Labs from last 24 hours 11/21/18 11/21/18 11/20/18 07:32 05:46 22:08 PT 26.8 H INR 2.7 POC Glucose 140 H 149 H 11/20/18 11/20/18 16:43 11:25 PT INR POC Glucose 170 H 130 H Impressions ITS Impressions Chest CTA 11/13/18 00:00 CONCLUSION: 1. No CT evidence for pulmonary artery embolism. 2. Airspace consolidation at the lung bases bilaterally, more prominent in the medial right lung base. Associated opacification of subsegmental bronchi at the bases, most notably on the left. Overall findings are most concerning for aspiration. Differential considerations include pneumonia. 3. Ill-defined nearly nodular 10 mm airspace disease in the superior segment of the right lower lobe. Suspect this is infectious/inflammatory in etiology. Recommend follow-up examination in 3-6 months following completion of appropriate course of therapy. 4. Severe coronary artery calcifications. Chest X-Ray 11/19/18 00:00 CONCLUSION: Underinflation with mild bibasilar opacity representing atelectasis or airspace consolidation. Shoulder CT 11/20/18 00:00 CONCLUSION: 1. Negative for fracture dislocation 2. Degenerative changes 3. Probable small deltoid hematoma. Venous Doppler Study 11/20/18 00:00 CONCLUSION: 1. No sonographic evidence for upper extremity DVT. 2. Subcutaneous complex fluid collection in the proximal biceps region measuring 6.5 x 2.8 x 1.7 cm. Overall imaging characteristics are most consistent with a hematoma. Differential considerations would include abscess in the appropriate clinical setting. Discharge Plan Discharge Disposition Patient Disposition: Discharge Home Discharge Condition Condition: Stable Discharge Order Discharge Orders: Discharge Order (Routine); Ordered 11/21/18 Ordered By: Claude Boss Discharge Details Anticipated Discharge Date: 11/21/18 Physicians Team Primary Care Provider: Daniel Ashby Attending Provider: Erendira Johnson Other Providers: Jeremiah Nation Glenn Rxs /Orders / Referrals /Forms Prescriptions: New diltiazem HCl [Cardizem CD] 180 mg Capsule,Extended Release 24hr 180 mg PO DAILY Qty: 30 RF: 0 metronidazole 500 mg Tablet 500 mg PO Q8HR Qty: 21 RF: 0 lisinopril 10 mg Tablet 10 mg PO DAILY Qty: 30 RF: 0 warfarin [Coumadin] 5 mg Tablet 5 mg PO DAILY@1600 Qty: 30 RF: 0 digoxin 125 mcg Tablet 125 mcg PO DAILY Qty: 30 RF: 0 furosemide 20 mg Tablet 20 mg PO DAILY Qty: 30 RF: 0 amoxicillin-pot clavulanate [Augmentin] 500-125 mg Tablet 1 tab PO Q12HR Qty: 14 RF: 0 budesonide-formoterol [Symbicort] 160-4.5 mcg/actuation Hfa Aerosol Inhaler 2 puff INH BID Qty: 1 RF: 0 Continue carvedilol 12.5 mg PO DAILY RF: 0 isosorbide mononitrate 30 mg PO DAILY RF: 0 atorvastatin 20 mg Tablet 20 mg PO DAILY RF: 0 potassium chloride 10 mEq Tablet Extended Release 10 meq PO DAILY RF: 0 nitroglycerin 0.4 mg Tablet, Sublingual 0.4 mg SUBLINGUAL Q5-15M PRN (Reason: Acute Pain) RF: 0 omega 2-iqd-cty-fish oil [Fish Oil] 1,000 mg (120 mg-180 mg) Capsule 1 cap PO DAILY RF: 0 Discontinued furosemide 20 mg PO BID RF: 0 lisinopril 20 mg PO DAILY RF: 0 aspirin 325 mg Tablet 325 mg PO DAILY RF: 0 Ambulatory Orders / Order Sets / DME: Prothrombin Time INR (Routine) Location: [facility] Ordered By: Claude Boss Walker With Front Wheels (1 each) (Routine) Location: Determined by Patient Ordered By: Claude Boss Referrals: Liu Bush MD [Physician] - See Instructions (Follow-up with cardiology in 2 weeks Please call the physician's office to book ) Jeremiah Nation MD [Physician] - See Instructions (Follow-up with proposal manager writer in 2 weeks Please call the physician's office to book ) Daniel Ashby DO [Primary Care Provider] - See Instructions ( Please call the physician's office to book F/U APT ) Discharge Instructions Patient Printed Instructions: Diltiazem (By mouth), Digoxin (By mouth), Lisinopril (By mouth), Furosemide (By mouth), Warfarin (By mouth), Metronidazole (By mouth), Amoxicillin (By mouth), A-fib (Atrial Fibrillation) ( DC), How to Use a Metered-Dose Inhaler (DC) Status ED Status: Left Department Discharge Information Discharge Date/Time: 11/21/18 11:31
== END 2018-11-21 11:31 | disposition home or self-care (01) | DRG 177 ==
LOC: PHED 15:23 → PHEDA 15:23 → PH3 20:37 → PHICU 11-14 19:40 → PH3 11-17 11:44
PROVIDERS: ADMIT Internal Medicine; ATTEND Internal Medicine
DX: M25.511 Pain in right shoulder; J69.0 Pneumonitis due to inhalation of food and vomit; Z95.5 Presence of coronary angioplasty implant and graft; G89.29 Other chronic pain; Z79.51 Long term (current) use of inhaled steroids; Z90.710 Acquired absence of both cervix and uterus; Z79.899 Other long term (current) drug therapy; T38.0X5A Adverse effect of glucocorticoids and synthetic analogues, initial encounter; J84.9 Interstitial pulmonary disease, unspecified; Z79.82 Long term (current) use of aspirin; I50.9 Heart failure, unspecified; M54.9 Dorsalgia, unspecified; R91.1 Solitary pulmonary nodule; R73.9 Hyperglycemia, unspecified; I27.20 Pulmonary hypertension, unspecified; I11.0 Hypertensive heart disease with heart failure; J44.1 Chronic obstructive pulmonary disease with (acute) exacerbation; J18.1 Lobar pneumonia, unspecified organism; I35.0 Nonrheumatic aortic (valve) stenosis; J44.0 Chronic obstructive pulmonary disease with (acute) lower respiratory infection; I25.10 Atherosclerotic heart disease of native coronary artery without angina pectoris; J96.01 Acute respiratory failure with hypoxia; I48.0 Paroxysmal atrial fibrillation; J98.11 Atelectasis; E78.5 Hyperlipidemia, unspecified
CPT/HCPCS: 36600; 71010; 71045; 71275; 73200; 80048; 80053; 80202; 81001; 82805; 82948; 82962; 83036; 83520; 83605; 83735; 83880; 84100; 84484; 85025; 85027; 85610; 87040; 87070; 87205; 87275; 87276; 87641; 87804; 90761; 90765; 90775; 93005; 93306; 93971; 94150; 94640; 94645; 94664; 94665; 94667; 94668; 96361; 96365; 96366; 96367; 96375; 96376; 97110; 97116; 97162; 97530; 99285; G0378; G8987; G8988; J0456; J0696; J1160; J1644; J1650; J1815; J1940; J2060; J2543; J2920; J2930; J3370; J7030; J7040; J7050; J7506; J7512; Q9967